=== PATIENT | male | born 1955 | race Caucasian/White ===

== ENCOUNTER → 2016-04-26 | Outpatient (CLI) | payer OTHER ==
[~2016-04-26] VITALS: Ht 188 cm; Wt 152.9 kg
[~2016-04-26] MED LIST: ALLERCLEAR10 MG PO; AMITRIPTYLINE H25 M2 PO; AMITRIPTYLINE H25 M3 PO; AMITRIPTYLINE H25 M4 GT; AMITRIPTYLINE H50 M3 PO; AMITRIPTYLINE H75 M1 PO; AMITRIPTYLINE PO; ARTIFICIAL TEAR15 M1 OPHTHALMIC; B-12; BONINE25 MG PO; BRETHINE2.5 MG PO; CELEBREX 200 M200 MG PO; CLONAZEPAM 0.50.5 M1 PO; CLONAZEPAM PO; COLACE100 MG PO; DIAZEPAM 2MG TAB2 MG PO; ELAVIL PO; FOLIC ACID1 MG PO; GLUMETZA500 PO; GLYCOLAX POWDER17 G1 PO; HYDROCODON-ACE1 EAC7 PO; LEVOXYL100 MCG PO; LIDODERM 5%1 PATCH TOP; LOVASTAT10; LOVASTAT20 PO; LYRICA 50 MG50 MG PO; LYRICA 75 MG CA75 MG PO; METOCLOPRAMIDE 55 MG PO; MONTELUKAST SOD10 MG PO; NEXIUM 40 MG CA40 M1 PO; NEXIUM40 MG PO; OSTEO BI-FLEX1 EAC1 PO; OXECTA5 MG PO; OXYCODONE HCL 55 MG PO; OXYCODONE HCL5 M1 PO; OXYCONTIN CR 1010 M1 PO; OXYCONTIN10 M1 PO; OXYCONTIN10 MG PO; OXYCONTIN20 M1 PO; OXYCONTIN20 MG PO; OXYCONTIN30 MG PO; OXYCONTIN40 MG PO; OXYIR5 MG PO; PREDNISOLONE 5 M5 M1 PO; PRILOSEC40 MG PO; PROAIR HFA8.5 GM INH; RANITIDINE 150150 M1 PO; REGLAN 5 MG TAB5 M1 PO; RESTORIL15 MG PO; ROXICODONE5 M2 PO; SINGULAIR 10 MG10 M1 PO; SINGULAIR5 MG PO; VITAMIN D-32000 UNIT PO; XOPENEX 0.63 MG/3 M1 INH; ZESTRIL10 MG PO; ZESTRIL20 MG PO; amitriptyline PO
--- NOTE | ~2016-04-26 | HPC ---
[facility] [place] [address] PAIN MANAGEMENT CONSULTATION Name: PATRICK WU Room #: REG [facility]#: [id number] Admission: 04/26/16 Attend Phys: Kathy Bryant MD Discharge: Date of : 53 Report #: [id number] THIS REPORT FOR: //name// CC: Juan Luis WRIGHT physician/PCP Kathy Bryant DATE OF SERVICE: 04/26/2016 DATE OF SERVICE: 04/26/2016 FOLLOWUP COMPLAINT: Here for medication renewal. FOLLOWUP HISTORY: The patient is a 60-year-old gentleman, who has been followed in the pain clinic because of chronic pain regarding his low back. He also has had chronic pain because of lljp-ls-klyl knee pain. He has had both knees repaired. He feels that his pain has improved since the surgeries have been performed. His problem at this juncture continues to be pain in his lower portion of his back with some pain that radiates down into his legs. He has increased his level of activity. He still walks with somewhat of an antalgic walk gait. He states that his orthopedic doctor had instructed him on how to walk more upright and with less bending of his back. PHYSICAL EXAMINATION: Blood pressure is 112/77, pulse 100, respiratory rate 20, room air O2 saturation is 96%. The patient's weight is 152 kilograms. BMI is 43. He complains of pain and discomfort in the lower portion of his back with pain radiating down into the buttocks area. He has not fallen in the last 3 months. IMPRESSION: 1. Status post bilateral knee replacements with continued improvement. The patient is working on his gait. 2. Myocardial infarct. The patient has had no cardiac problems since we saw him last. He continues to follow up with his rn gynecology. Treatment of low back and chronic pain with opioid medications. RECOMMENDATIONS: We discussed treatment options with the patient. Risks and benefits of continued opioids medications were reviewed. The possible dependency of opioid medications have been discussed again. The patient feels that his medications continued enabled him to engage in activities of daily living. He would not be able to without their use. We will renew the patient's OxyContin medication 20 mg in the morning and 10 mg at night. He will use oxycodone 5 mg p.r.n. He continues with clonazepam 0.5 mg every day. Elavil will be continued at 75 mg at bedtime. The patient will [address] [address] PAIN MANAGEMENT CONSULTATION Name: PATRICK WU Room #: REG [facility].#: [id number] Admission: 04/26/16 Attend Phys: Kathy Bryant MD Discharge: Date of : 53 Report #: [id number] also continue with his Xopenex inhaler, Singulair, Nexium, and albuterol. He will call us if he has any problems with his medications. We would like to thank you for letting us participate in his care. We hope he continues to improve. <ELECTRONICALLY SIGNED> By: Kathy Bryant MD 05/17/16 1018 [id number] [id number] Kathy Bryant MD /nt
[2016-04-26 09:14] VITALS: BP 112/77
== END | disposition home or self-care (01) ==
LOC: PAIN 04-22 07:09
DX: M54.5 Low back pain (principal); G89.29 Other chronic pain; Z96.653 Presence of artificial knee joint, bilateral; I25.2 Old myocardial infarction

== ENCOUNTER → 2016-07-27 | Outpatient (CLI) | payer OTHER ==
[~2016-07-27] VITALS: Ht 188 cm; Wt 151.8 kg
--- NOTE | ~2016-07-27 | HPC ---
[facility] [address] [place] [address] PAIN MANAGEMENT CONSULTATION Name: PATRICK WU Room #: REG [facility] [id number] Admission: 07/27/16 Attend Phys: Kathy Bryant MD Discharge: Date of : 53 Report #: [id number] THIS REPORT FOR: //name// CC: Juan Luis Torres DO [facility] physician/PCP Kathy Bryant DATE OF SERVICE: 07/27/2016 FOLLOWUP COMPLAINT: Things are going pretty well. FOLLOWUP HISTORY: The patient is a 61-year-old gentleman who has been followed in the pain clinic because of lumbar radiculopathy and history of bilateral knee wqqb-qi-znuo discomfort. He has had his left and right knee replaced. Overall, he feels that the knees are improving. He continues to have pain and discomfort in the lower portion of his back. He rates his pain as about 5. PHYSICAL EXAMINATION: Blood pressure 139/79, pulse 91, respiratory rate 18, room air saturation 96%. The patient is not walking with his cane at this juncture. He continues to improve his ambulation secondary to replacement of both knees. He continues to have pain and discomfort in his low back. He is wondering whether or not he needs surgery. He states that he is going to see a neurosurgeon in the near future. IMPRESSION: 1. Status post myocardial infarct, stable at this juncture per the patient's report. 2. Bilateral knee replacements, improved gait. 3. History of lumbar radicular pain. The patient states that he is having significant back pain and he is going to see a neurosurgeon in the near future. RECOMMENDATIONS: A script for his medications has been rewritten. He will call us if he has any problems with his medications. We would like to thank you for letting us participate in his care. We hope he continues to improve. By: [id number] Kathy Bryant MD /nt
[2016-07-27 12:43] VITALS: BP 150/91
== END ==
LOC: PAIN 06:58
DX: M54.16 Radiculopathy, lumbar region (principal); Z96.653 Presence of artificial knee joint, bilateral; I25.2 Old myocardial infarction; I10 Essential (primary) hypertension; F32.9 Major depressive disorder, single episode, unspecified

== ENCOUNTER → 2016-08-24 | Outpatient (CLI) | payer OTHER ==
[~2016-08-24] VITALS: Ht 182.9 cm; Wt 151.4 kg
[~2016-08-24] MED LIST changes: +TOPAMAX50 MG PO
--- NOTE | ~2016-08-24 | HPC ---
[facility] [address] [place] [address] PAIN MANAGEMENT CONSULTATION Name: PATRICK WU Room #: REG ROSELYN Julisa#: [id number] Admission: 08/24/16 Attend Phys: Kathy Bryant MD Discharge: Date of : 53 Report #: [id number] THIS REPORT FOR: //name// DATE OF SERVICE: 08/24/2016 FOLLOWUP COMPLAINT: "My knees are continue to feel pretty good." FOLLOWUP HISTORY: The patient is a 61-year-old gentleman who has been followed in the pain clinic because of chronic pain involving the lumbar area at this juncture. He did have pain in his knees bilaterally. He has had both knees replaced and feels that things are continuing to improve overall. He has not had any problems with his medications since we saw him last. Overall, he feels that his level of activity continues to increase. He is able to engage in more physical activities. He is having some pain and discomfort in his lower back with some pain, which radiates down into his legs. He is having some pain in his left shoulder. He notes some throbbing and stiffness. Rates his back pain as a 5/10 and some pain in the neck area as a 6/10. Notes that the pain is more problematic when he is looking down. PHYSICAL EXAMINATION: Weight 151 kilograms, height 182 cm, BMI 45. The patient has not fallen since we saw him last. He appears to be taking the medication as prescribed. Is not complaining of any cardiac problems since we saw him last. IMPRESSION: 1. History of lumbar radicular pain with pain radiating down into his legs. The patient states that he will see a neurosurgeon if the pain persists. 2. Status post myocardial infarct, stable at this juncture. 3. Bilateral knee replacements, notes improving gait and activity level. RECOMMENDATIONS: We will continue with his Elavil 75 mg at bedtime, clonazepam 0.5 mg at bedtime, oxycodone 5 mg 1 p.o. t.i.d., OxyContin total of 30 mg p.o. at bedtime. We would like to thank you for letting us participate in his care. We hope he continues to improve. By: [id number] Kathy Bryant MD /caryl
[2016-08-24 08:03] VITALS: BP 127/95
== END | disposition home or self-care (01) ==
LOC: PAIN 06:45
DX: M54.16 Radiculopathy, lumbar region (principal); M25.561 Pain in right knee; M25.562 Pain in left knee; I25.2 Old myocardial infarction; G89.29 Other chronic pain; F11.20 Opioid dependence, uncomplicated; Z96.653 Presence of artificial knee joint, bilateral

== ENCOUNTER → 2016-09-21 | Outpatient (CLI) | payer OTHER ==
[~2016-09-21] VITALS: Ht 188 cm; Wt 152.9 kg
--- NOTE | ~2016-09-21 | HPC ---
[facility] [place] [address] PAIN MANAGEMENT CONSULTATION Name: PATRICK WU Room #: REG [facility] Hernandez.#: [id number] Admission: 09/21/16 Attend Phys: Kathy Bryant MD Discharge: Date of : 53 Report #: [id number] THIS REPORT FOR: //name// CC: Juan Luis WRIGHT physician/PCP Kathy Bryant DATE OF SERVICE: 09/21/2016 FOLLOWUP COMPLAINT: "Here for medication renewal." FOLLOWUP HISTORY: The patient is a 61-year-old gentleman who has been followed in the pain clinic because of chronic bilateral knee pain. He is status post knee replacements and has noticed improvement in this. He is experiencing pain and discomfort in his low back area as well as some pain and discomfort in his left shoulder. He has been working on his house and working overhead on the ease of his house. He has noted some increased pain and discomfort in this area. He rates his pain as 6 in his neck and 3 in the lower back area. He continues to have some throbbing, stiffness and cramping discomfort in the low back area. He feels that his medications enable him to engage in activities he would not be able to without their use. He again is aware of possible complication of opioid medications, which include addiction and tolerance. He feels that the medications are helpful and would like to continue their use. He keeps his medications in a controlled environment. PHYSICAL EXAMINATION: Blood pressure 162/94, pulse 83, respiratory rate 14, room air saturation 96%. Height 6 feet 2 inches, weight 152 kilograms. BMI is 43. He has not fallen since we saw him last. He is ambulating now without use of his cane. IMPRESSION: 1. History of low back pain with lumbar radicular pain down into his legs. 2. Status post myocardial infarct/stable. 3. Status post bilateral knee replacements, has continued to improve with activity. 4. Pain in the neck and shoulder area after working overhead on his house. May have cervical radicular component. RECOMMENDATIONS: May consider cervical epidural steroid injections. A script for his medications has been written. He will call us if he has any problems with his medications. [facility] [address] [place] [address] PAIN MANAGEMENT CONSULTATION Name: PATRICK WU Room #: REG [facility]#: [id number] Admission: 09/21/16 Attend Phys: Kathy Bryant MD Discharge: Date of : 53 Report #: [id number] We would like to thank you for letting us participate in his care. We hope he continues to improve. <ELECTRONICALLY SIGNED> By: Kathy Bryant MD 09/22/16 0820 [address]250 [id number] Boaz Bryant MD /nt
[2016-09-21 08:09] VITALS: BP 162/94
== END | disposition home or self-care (01) ==
LOC: PAIN 06:36
DX: M54.16 Radiculopathy, lumbar region (principal); M79.1 Myalgia; Z98.890 Other specified postprocedural states

== ENCOUNTER → 2016-10-19 | Outpatient (CLI) | payer OTHER ==
[~2016-10-19] VITALS: Ht 188 cm; Wt 106.8 kg
[2016-10-19 08:05] VITALS: BP 127/61
== END ==
LOC: PAIN 07:12
DX: M54.5 Low back pain (principal)

== ENCOUNTER → 2016-11-23 | Outpatient (CLI) | payer OTHER ==
[~2016-11-23] VITALS: Ht 188 cm; Wt 146.5 kg
--- NOTE | ~2016-11-23 | HPC ---
[facility] [place] [address] PAIN MANAGEMENT CONSULTATION Name: PATRICK WU Room #: REG [facility] [id number] Admission: 11/23/16 Attend Phys: Kathy Bryant MD Discharge: Date of : 53 Report #: [id number] THIS REPORT FOR: //name// CC: Juan Luis WRIGHT physician/PCP Kathy Bryant DATE OF SERVICE: 11/23/2016 FOLLOWUP COMPLAINT: Low back and shoulder pain. HISTORY OF PRESENT ILLNESS: The patient is a 61-year-old gentleman who has been followed in the pain clinic because of lumbar radiculopathy. He has undergone epidural steroid injections in the past. He also suffered from knee pain. He is status post bilateral knee replacements and has noticed improvement in this area. He rates his pain as 5/10. He continues to have pain in the lower portion of his back, which radiates down into his legs. He has some left shoulder pain and discomfort. He notes that the pain is worse when he is looking up. The patient feels that his opioid medications continue to be helpful. He is taking them as prescribed. We have discussed the possibility of time tolerance as well as dependence associated with opioid medications. At this juncture, he would like to continue with his current medications. PHYSICAL EXAMINATION: Blood pressure is 121/84, pulse 79, respiratory rate 14 and room air saturation is 98%. Height 6 feet 2 inches, weight 323 pounds, BMI is 41. He has not fallen since we saw him last. IMPRESSION: 1. History of low back pain with lumbar radiculopathy down into his legs. 2. Status post myocardial infarct, stable. 3. Status post bilateral knee replacements, continues to improve with activity. 4. Pain in the neck, shoulder area while working ____ house, stable, may have cervical radicular component. RECOMMENDATIONS: We will continue with his current medical regimen of OxyContin 10 mg at bedtime, 20 mg a.m. for a total of 30 mg OxyContin and OxyContin immediate release 5 mg 1 p.o. t.i.d. We would like to thank you for letting us participate in his care. We hope he continues to improve. By: [id number] Kathy Bryant MD /caryl
[2016-11-23 08:09] VITALS: BP 121/84
== END ==
LOC: PAIN 06:58
DX: M54.16 Radiculopathy, lumbar region (principal); M54.2 Cervicalgia; M25.519 Pain in unspecified shoulder

== ENCOUNTER → 2016-12-28 | Outpatient (CLI) | payer OTHER ==
[~2016-12-28] VITALS: Ht 188 cm; Wt 145.2 kg
[~2016-12-28] MED LIST changes: +VITAMIN B-1250 MC3 INJECTION; +VITAMIN D5000 UNI1 PO
--- NOTE | ~2016-12-28 | HPC ---
[facility] [address] [place] [address] PAIN MANAGEMENT CONSULTATION Name: PATRICK WU Room #: REG [facility] Hernandez.#: [id number] Admission: 12/28/16 Attend Phys: Kathy Bryant MD Discharge: Date of : 53 Report #: [id number] THIS REPORT FOR: //name// CC: Juan Luis WRIGHT physician/PCP Kathy Bryant DATE OF SERVICE: 12/28/2016 FOLLOWUP COMPLAINT: "I have pain in my low back in the center. I am also having more pain in my left shoulder with pain down into my arm with numbness and tingling and weakness. It is worse when I lie on it at night." FOLLOWUP HISTORY: The patient is a 61-year-old gentleman who has been followed in the pain clinic for quite a number of years. As you recall, he has had problems with his knees. He has had both knees replaced and feels like things are improving from that vantage point. He is having pain and discomfort involving his left arm with pain radiating down into the arm with numbness, weakness and tenderness down into the left arm. 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 The pain waxes and wanes. It is most problematic with certain positions. If he turns his head to the left and bends it, he notes pain radiating down into his arm. He is having pain and discomfort in the back area at this juncture. It is focal. Palpation in the lower portion of his right upper buttocks area reproduces pain and discomfort. He notes that this pain has become more problematic and it influences his activities of daily living. He states that his cardiac status is good. He is not having any pain or discomfort with activities. He still feels that the problem he had with his heart was possibly secondary to ____ little clot when he underwent his knee replacement and did not take the Coumadin medication for a long enough period of time. PHYSICAL EXAMINATION: Blood pressure 132/80, pulse 87, respiratory rate 16, room air saturation 98%. Height 6 feet 2 inches, weight 320 pounds, BMI is 41, has not fallen since we saw him last. He is having pain and discomfort in the left arm with pain radiating down into the shoulder, forearm and down into his fingers. Tilting his head to the left and bending it backwards causes pain that can radiate down into his shoulder, arm and into his hand. He has pain and discomfort in the area of the right posterior superior iliac spine area. Palpation in this area reproduces pain and discomfort, which is causing him problems at this juncture. He would like to have an injection into this area to help decrease the pain. IMPRESSION: 1. Myofascial pain in the right posterior superior iliac spine area. 2. History of lumbar radiculopathy, which radiates down into his legs. 3. History of pain in the left neck and arm, which has been going over the last few months. Worsens with certain positioning with numbness, weakness, radiating [address] [address] PAIN MANAGEMENT CONSULTATION Name: PATRICK WU Room #: REG CLJolene Egan#: [id number] Admission: 12/28/16 Attend Phys: Kathy Bryant MD Discharge: Date of : 53 Report #: [id number] down into his arm -- cervical radiculopathy. 4. Status post bilateral knee replacements, continues to improve. RECOMMENDATIONS: We discussed treatment options with the patient. He has a trigger point in the right posterior superior iliac spine area. We will proceed with a trigger point injection at this juncture. He will return. At the next return, we will consider a cervical epidural steroid injection if he continues to have pain and discomfort of a radicular nature down his left shoulder, arm, forearm and into his hand with weakness. PROCEDURE NOTE: The patient was placed in the sitting position. The right posterior superior iliac spine area was palpated. The area of the latissimus dorsi and gluteus selena was palpated. This reproduced the patient's discomfort. A total of 10 mL of 0.5% bupivacaine and 80 mg Depo-Medrol was injected into this area. The patient's pain decreased significantly and rates it as 3. He will follow up in the near future. We will consider a cervical epidural steroid injection in the future if needed. We would like to thank you for letting us participate in his care. We hope he continues to improve. By: [id number] Kathy Bryant MD /ODALYS
[2016-12-28 08:51] VITALS: BP 132/80
== END | disposition home or self-care (01) ==
LOC: PAIN 12-21 07:06 → EDBD 07:07 → PAIN 10:57
DX: M79.1 Myalgia (principal); G89.29 Other chronic pain; M54.16 Radiculopathy, lumbar region; I25.2 Old myocardial infarction; M54.12 Radiculopathy, cervical region; E66.09 Other obesity due to excess calories; Z96.653 Presence of artificial knee joint, bilateral; Z98.890 Other specified postprocedural states; Z79.891 Long term (current) use of opiate analgesic; Z68.41 Body mass index [BMI] 40.0-44.9, adult

== ENCOUNTER → 2017-03-29 | Outpatient (CLI) | payer OTHER ==
[~2017-03-29] VITALS: Ht 188 cm; Wt 139.5 kg
[~2017-03-29] MED LIST changes: +AMITRIPTYLINE100 MG PO; +CELEBREX 200 M200 M1 PO; +MEDROLDOSEPACK PO; +MOBIC15 MG PO; +NEURONTIN 300300 M1 PO; -VITAMIN B-1250 MC3 INJECTION; +VITAMIN B-12500 MCG PO
--- NOTE | ~2017-03-29 | HPC ---
[facility] [address] [place] [address] PAIN MANAGEMENT CONSULTATION Name: PATRICK WU Room #: REG [facility]#: [id number] Admission: 03/29/17 Attend Phys: Kathy Bryant MD Discharge: Date of : 53 Report #: [id number] THIS REPORT FOR: //name// CC: Juan Luis WRIGHT physician/PCP Kathy Bryant DATE OF SERVICE: 03/29/2017 FOLLOWUP COMPLAINT: Here for medications. Things are going pretty good and having less pain since I started the Meloxicam. FOLLOWUP HISTORY: The patient is a 61-year-old gentleman, who has been followed in the pain clinic. As you recall, he has chronic knee pain. This knee pain has improved since he has had bilateral knee replacements. Continues to have history of back pain with lumbar radicular symptoms. States that this waxes and wanes and continues to be problematic. He was having significant pain in his neck, arms, and down in his forearms bilaterally. He took Mobic and noted there is improvement in this. He feels that this medication has been quite successful in helping to decrease his pain and discomfort. It enables him to increase his level of activity with less discomfort. PHYSICAL EXAMINATION: Blood pressure 143/100, pulse 106, respiratory rate 20, room air saturation 96%, height 6 feet 2 inches, weight 307 pounds, BMI is 39. Has pain and discomfort, which he describes as discomfort, radiating down his neck and shoulders as well as pain in the low back, which radiates down to his legs and increases with walking. He rates his pain as a 6/10. IMPRESSION: 1. History of myofascial pain in the posterior iliac spine area. 2. History of lumbar radicular pain. States his pain continues to radiate down into his legs with certain activities. He does not want an epidural steroid injection at this juncture. 3. Cervical radiculopathy, which improved with use of Mobic, but still had been encompasses his shoulders and forearms. 4. Status post bilateral knee replacements with continued improvement. RECOMMENDATIONS: We will continue with his current medical regimen of OxyContin 20 mg 1 p.o. and oxycodone 5 mg t.i.d. p.r.n. with Meloxicam. We have discussed the use of opioid medications. We have discussed the long-term benefits of opioid medications and the consequences, which include dependence, tolerance, [address] [address] PAIN MANAGEMENT CONSULTATION Name: PATRICK WU Room #: REG CLJolene Julisa#: [id number] Admission: 03/29/17 Attend Phys: Kathy Bryant MD Discharge: Date of : 53 Report #: [id number] and the patient elects to proceed. We will continue his complex medical management to help curb his pain and keep him functional. <ELECTRONICALLY SIGNED> By: Kathy Bryant MD 04/07/17 0806 0808 1230 Kathy Bryant MD /ODALYS
[2017-03-29 08:11] VITALS: BP 143/100
== END ==
LOC: PAIN 06:49
DX: G89.29 Other chronic pain (principal); M54.16 Radiculopathy, lumbar region; M54.12 Radiculopathy, cervical region; Z96.653 Presence of artificial knee joint, bilateral

== ENCOUNTER → 2017-04-26 | Outpatient (CLI) | payer OTHER ==
[~2017-04-26] VITALS: Ht 188 cm; Wt 140.7 kg
--- NOTE | ~2017-04-26 | HPC ---
[facility] [place] [address] PAIN MANAGEMENT CONSULTATION Name: PATRICK WU Room #: REG RO[facility]N Ng.#: [id number] Admission: 04/26/17 Attend Phys: Kathy Bryant MD Discharge: Date of : 53 Report #: [id number] THIS REPORT FOR: //name// CC: Juan Luis Torres [facility] physician/PCP Kathy Bryant DATE OF SERVICE: 04/26/2017 FOLLOWUP COMPLAINT: "I need to see the eye doctor. I got some paint sprayed in my eyes when I was working on a project." FOLLOWUP HISTORY: The patient is a 61-year-old gentleman who has been followed in the pain clinic because of chronic pain. He continues to have pain in his low back area with lumbar radicular concerns. He also has bilateral shoulder pain and discomfort. He has noted some irritation in his left and right eye. He was working on a project at [employer] for his grandchildren. He was spraying paint. He inadvertently sprayed some paint into his eye. He is noticing some irritation in the left eye. "It feels as though there is something in the left side." He is getting over a cold. He feels that his medications continue to be helpful. He is able to engage in activities, he would not be able to without their use. He states that he continues to use medications as prescribed. He is keeping them in a controlled environment. He is aware of the media regarding opioid use and opioid misuse. He is somewhat concerned that in the future if a reduced/stopped opioid use as an option. This will be more problematic for him. ALLERGIES: No known drug allergies. MEDICATIONS: OxyContin 20 mg b.i.d., OxyContin 10 mg b.i.d., oxycodone 5 mg 1 p.o. t.i.d., meloxicam 15 mg daily, amitriptyline 75 mg, vitamin D3, vitamin B12, Xopenex 0.63 mg respiratory inhalation t.i.d., Singulair 10 mg, Nexium 40 mg. PHYSICAL EXAMINATION: VITAL SIGNS: Blood pressure 133/82, pulse 74, respiratory rate 20, room air saturation 96%. Height 6 feet 2 inches, weight 310 pounds. GENERAL: Well-developed white male, obese. Orientation: Alert and oriented. Affect is appropriate. LUNGS: Clear to auscultation. HEART: Regular rate. ABDOMEN: Nontender. MUSCULOSKELETAL: The patient has some pain and discomfort in the posterior iliac spine area. Has had some pain in the lumbar area at L4-L5, well healed knees. The patient is ambulating without use of a cane. EYES: No obvious object seen in his eye or significant amount of redness. The patient does perceive some element in his left eye, [place] [address] PAIN MANAGEMENT CONSULTATION Name: PATRICK WU Room #: REG [facility]#: [id number] Admission: 04/26/17 Attend Phys: Kathy Bryant MD Discharge: Date of : 53 Report #: [id number] particle in this area. IMPRESSION: 1. History of myofascial pain, pain in the posterior superior iliac spine area. 2. History of lumbar radicular pain with pain radiating down his legs with certain activities. May consider an epidural steroid injection in the future. 3. Left eye discomfort. The patient states that he accidentally sprayed paint in his eye when he was painting a barn play house for his grandchildren at [facility]. He is going to follow up with the eye doctor. 4. Cervical radiculopathy, improved with use of Mobic. The patient is not having significant problems with GI discomfort. He will continue to monitor his GI tract. Use of nonsteroidal anti-inflammatory medications. 5. Status post bilateral knee replacements, continues to show improvement, was walking without a cane. RECOMMENDATIONS: We will continue with his current medical regimen of OxyContin 10 mg and 20 mg, a total of 30 mg; and oxycodone 5 mg 1 p.o. t.i.d. He will call us if he has any problems with his medications. We would like to thank you for letting us participate in his care. We hope he continues to improve. <ELECTRONICALLY SIGNED> By: Kathy Bryant MD 05/12/17 1332 0810 1439 Kathy Bryant MD /[facility]
[2017-04-26 09:23] VITALS: BP 133/82
== END ==
LOC: PAIN 06:16
DX: M54.16 Radiculopathy, lumbar region (principal); M54.12 Radiculopathy, cervical region; Z96.653 Presence of artificial knee joint, bilateral

== ENCOUNTER → 2017-05-24 | Outpatient (CLI) | payer OTHER ==
[~2017-05-24] VITALS: Ht 188 cm; Wt 138.3 kg
--- NOTE | ~2017-05-24 | HPC ---
[facility] [place] [address] PAIN MANAGEMENT CONSULTATION Name: PATRICK WU Room #: [facility] [id number] Admission: 05/24/17 Attend Phys: Kathy Bryant MD Discharge: Date of : 53 Report #: [id number] THIS REPORT FOR: //name// CC: Juan Luis WRIGHT physician/PCP Kathy Bryant DATE OF SERVICE: 05/24/2017 FOLLOWUP COMPLAINT: Here for medication renewal. FOLLOWUP HISTORY: The patient is a 61-year-old gentleman, who has been followed in the pain clinic because of chronic back pain. He also has chronic knee pain, which has improved since his knee replacement. He finds that his medications continue to be helpful. He finds that oxycodone continues to be instrumental in enabling him to continue to be active. He states that he is taking his medication as prescribed. He is having no problems with mentation. He is having no problems with GI complaints. He states that he is taking medications as prescribed. He keeps his medications in a guarded area at home. He would like to have his medications renewed at this juncture. ALLERGIES: No known drug allergies. MEDICATIONS: Current medications, which have been reviewed, OxyContin 20 mg b.i.d., OxyContin 10 mg b.i.d., oxycodone 1 p.o. t.i.d., Meloxicam 15 mg daily, amitriptyline 75 mg daily, vitamin D3, vitamin B12, Xopenex 0.63 mg as a respiratory inhaler t.i.d., Singulair 10 mg, Nexium 40 mg. PAIN CLINIC ASSESSMENT: 1. Positive history of osteoarthritis involving his knees, which have been replaced. 2. Height 6 feet 2 inches, weight 305 pounds, BMI is 39.1. 3. Vital Signs: Blood pressure 156/97, pulse is 106, respiratory rate 20, room air O2 saturation is 96%. 4. Pain intensity is rated as 4-5. 5. Fall risk. The patient has not fallen in the last 3 months. He is careful and feels that his strength continues to improve. His knees have healed up well. 6. The patient is not on any blood thinner. 7. Hypertension. The patient is not being treated for hypertension. 8. Opioid therapy greater than 6 weeks. The patient is on chronic opioid therapy and get his medications only from the pain clinic. 9. Risk assessment tool. 10. Functional assessment tool. 11. Recommend recreational drug use. The patient denies use [place] [address] PAIN MANAGEMENT CONSULTATION Name: PATRICK WU Room #: REG [facility]#: [id number] Admission: 05/24/17 Attend Phys: Kathy Bryant MD Discharge: Date of : 53 Report #: [id number] 12. Tobacco: The patient does not smoke. 13. Alcohol use. The patient does not use alcohol on a regular basis. PHYSICAL EXAMINATION: GENERAL: The patient is a well-developed, somewhat obese male, appears appropriate for age. Orientation: The patient is alert and oriented x 3. Affect: The patient's affect appears normal. Normal push of speech. HEENT: Normocephalic, atraumatic. Extraocular eye muscles are intact. Ears, normal hearing. Denies nasal congestion or complaints. Moist buccal membrane. NECK: Without adenopathy or JVD. LUNGS: Clear to auscultation. HEART: Regular rate. ABDOMEN: Protuberant, nontender. MUSCULOSKELETAL: The patient has normal alignment of the back without significant scoliosis, significant kyphosis or lordosis. Has well healed knees. Able to walk without significant antalgic gait. Muscle strength in the lower extremities judged to be 5/5. Ambulating without a cane at this juncture. IMPRESSION: 1. Myofascial pain in the posterior superior iliac spine areas. 2. History of lumbar radiculopathy and pain radiating down into his leg in certain activities. May consider epidural steroid injection in the future. 3. Left eye discomfort has improved. 4. Cervical radiculopathy, improved with use of Mobic and has not had any GI complaints. 5. Status post bilateral knee replacements. Continue to ambulate without a cane. RECOMMENDATIONS: We discussed treatment options with the patient. At this juncture, we will continue with his current medical regimen. We have discussed again the problems with opioid medications which are addiction as well as tolerance. The patient is aware of the implications of opioids use. He has seen it in the news. We have discussed the need to stay compliant with the CDCs, suggested morphine equivalents. We will continue to make advances in that direction. We would like to thank you for letting us participate in his care. We hope he continues to improve. <ELECTRONICALLY SIGNED> By: Kathy Bryant MD 06/21/17 1429 [id number] Kathy Bryant MD /ODALYS
[2017-05-24 08:16] VITALS: BP 156/97
== END ==
LOC: PAIN 06:39
DX: M53.3 Sacrococcygeal disorders, not elsewhere classified (principal); M54.12 Radiculopathy, cervical region; Z96.653 Presence of artificial knee joint, bilateral; M54.16 Radiculopathy, lumbar region

== ENCOUNTER → 2017-06-23 | Outpatient (CLI) | payer OTHER ==
[~2017-06-23] VITALS: Ht 188 cm; Wt 140.2 kg
[~2017-06-23] MED LIST changes: -AMITRIPTYLINE100 MG PO; -CELEBREX 200 M200 M1 PO; -NEURONTIN 300300 M1 PO; +VITAMIN B-1250 MC3 INJECTION; -VITAMIN B-12500 MCG PO
--- NOTE | ~2017-06-23 | HPC ---
[facility] [address] [place] [address] PAIN MANAGEMENT CONSULTATION Name: PATRICK WU Room #: REG [facility] MSheylaRoxi.#: [id number] Admission: 06/23/17 Attend Phys: Kathy Bryant MD Discharge: Date of : 53 Report #: [id number] THIS REPORT FOR: //name// CC: Juan Luis Torres DO FAM physician/PCP Kathy Bryant DATE OF SERVICE: 06/23/2017 PRIMARY CARE PHYSICIAN: Juan Luis Torres DO FOLLOWUP COMPLAINT: Here for medication renewal. FOLLOWUP HISTORY: The patient is a 62-year-old gentleman who has been followed in the pain clinic because of chronic pain involving his low back. He has also had chronic knee pain and has undergone bilateral knee replacements. Still has some pain in his back with some pain that radiates down into his legs. He has had some problems with his cervical area as well. He was given a script for Mobic. He noticed that it was quite beneficial with the upper extremity pain and discomfort. After prolonged use of this medication, he has noted some increased problems with his stomach. Feels that this medication has caused some GI irritation and has cut back on its use. Rates his pain as a 6-7 at this juncture. Notes some throbbing pain and constant discomfort when walking. Notes that there is pain and discomfort when he looks up because of the problem in his neck. Notes some pain when he is lying down on his arm. Notes that he has had some worsening of pain when he is engaged in some activities of daily living such as laying tiles or other activities. At this juncture, he would like to continue his medications. He feels that the medications are helpful. There are no problems with his mentation. These medications enable him to continue to engage in activities of daily living, he would not be able to without their use. He has been watching some media in regards to opioid use in our society. He feels overall that his medications are working reasonably well. They enable him to remain active. He keeps his medications in a guarded area. Denies any problems with mentation. ALLERGIES: No known drug allergies. MEDICATIONS: OxyContin 10 mg b.i.d., oxycodone 1 p.o. t.i.d., Meloxicam 15 mg daily, amitriptyline 75 mg daily, vitamin D3, vitamin B12, Xopenex 0.6 mg respiratory inhaler t.i.d., Singulair 10 mg, Nexium 40 mg. PAIN CLINIC ASSESSMENT: 1. The patient does have a history of osteoarthritis involving his knees, which have been replaced. Does have some back pain and discomfort as well. 2. Height 6 feet 2 inches, weight 309 pounds, BMI is 39. 3. Vital signs: Blood pressure 136/85, pulse 85, respiratory rate 16, [place] [address] PAIN MANAGEMENT CONSULTATION Name: PATRICK WU Room #: REG [facility].#: [id number] Admission: 06/23/17 Attend Phys: Kathy Bryant MD Discharge: Date of : 53 Report #: [id number] saturation 95%. 4. Pain intensity 09/17. 5. Fall risk. The patient has not fallen in the last 3 months. He does use a cane for ambulation. 6. Blood thinner. The patient is not on a blood-thinning agent 7. History of hypertension. The patient is being treated for hypertension. 8. Opioid therapy. Used greater than 6 weeks, the patient is on opioid therapy. 9. Risk assessment with opioid risk tool. 10. Functional assessment tool. 11. Recreational drug use, never. 12. Tobacco use, never. 13. Alcohol. The patient denies use of alcoholic beverages. PHYSICAL EXAMINATION: GENERAL: The patient is a well-developed white male, appears his stated age. ORIENTATION: The patient is alert and oriented x 3. AFFECT: The patient's affect is appropriate. SPEECH: Speech is normal. HEENT: Normocephalic, atraumatic. Extraocular eye muscles intact. Hearing is within normal limits. Sclerae are normal. Mucous membranes are moist. NECK: Has some limitations with certain movements of extension, flexion left and right lateral bending. Left and right lateral movement causes some increased pain and discomfort in his arm and down into his hands. HEART: Regular rate. ABDOMEN: Protuberant. CHEST: Clear to auscultation. LOWER EXTREMITIES: Muscle strength is judged to be 5/5 for the major muscle groups. The patient does walk with use of a cane. Does complain of some low back pain and discomfort with low lumbar radicular pain down into his back and his legs on occasion. This involves the L4-L5 distribution. MUSCULOSKELETAL: Without significant kyphosis, scoliosis or lordosis. IMPRESSION: 1. History of bilateral knee pain, status post knee replacements. 2. History of lumbar radicular pain, which is episodic in nature. 3. Cervical radicular pain with pain radiating down into the arms. The patient has stopped using Mobic, which was quite helpful secondary due to some gastrointestinal discomfort, may consider cervical epidural steroid injections in the future. 4. Myofascial pain, sometimes pain in the area of the posterior superior iliac spines. We may consider trigger point injections in the future. RECOMMENDATIONS: We discussed treatment options with the patient. We will continue with his current medical regimen of OxyContin and oxycodone. We have discussed the need to be within the range of the [facility] which is less than [address] [facility] [address] [place] [address] PAIN MANAGEMENT CONSULTATION Name: PATRICK WU Room #: REG [facility].#: [id number] Admission: 06/23/17 Attend Phys: Kathy Bryant MD Discharge: Date of : 53 Report #: [id number] morphine equivalents. We will rewrite the patient's OxyContin 20 mg 1 p.o. morning and evening. We will also write for the OxyIR medications. The patient will stop taking the Mobic at this juncture secondary to the irritation of his GI tract. If he takes his medication, he will be mindful of his stomach. We would like to thank you for letting us participate in his care. We hope he continues to improve. <ELECTRONICALLY SIGNED> By: Kathy Bryant MD 07/19/17 0851 1730 0515 Kathy Bryant MD /[facility]
[2017-06-23 10:39] VITALS: BP 136/85
== END ==
LOC: PAIN 06-21 14:03
DX: G89.29 Other chronic pain (principal); M54.5 Low back pain; M79.1 Myalgia

== ENCOUNTER → 2017-10-04 | Outpatient (CLI) | payer OTHER ==
[~2017-10-04] VITALS: Ht 188 cm; Wt 145.1 kg
[~2017-10-04] MED LIST changes: +CELEBREX 200 M200 M1 PO
--- NOTE | ~2017-10-04 | HPC ---
[facility] [address] [place] [address] PAIN MANAGEMENT CONSULTATION Name: PATRICK WU Room #: REG ROSELYN GoodsonSheylaRoxi.#: [id number] Admission: 10/04/17 Attend Phys: Kathy Bryant MD Discharge: Date of : 53 Report #: [id number] THIS REPORT FOR: //name// CC: Juan Luis WRIGHT physician/PCP Kathy Bryant DATE OF SERVICE: 10/04/2017 FOLLOWUP COMPLAINT: Here for medication renewal. FOLLOWUP HISTORY: The patient is a 62-year-old gentleman who has been followed in the Pain Clinic because of chronic back pain. He also has pain involving his knees. They have been replaced. Has some pain today involving his neck and pain radiating down to his arm. He has used Mobic. He finds that medication has caused some GI upset. He continues to find benefit from his medications. He finds that the OxyContin and oxycodone are still beneficial. He feels that his medications enable him to remain active. He is somewhat tired today. He states that his daughter has been hospitalized and has been found to have [place]'s disease. He has been spending more time with her. He has returned today for renewal of this medication. Keeps his medications in a guarded area. ALLERGIES: No known drug allergies. MEDICATIONS: OxyContin 10 mg p.o. b.i.d., 20 mg OxyContin b.i.d. for a total of 30 mg oxycodone b.i.d., oxycodone 5 one p.o. t.i.d., meloxicam 15 mg daily, amitriptyline 75 mg daily, multivitamin, vitamin D, vitamin B12, Xopenex 0.0.6 mg, respiratory inhaler t.i.d., Singulair 10 mg, and Nexium 40 mg. PAIN CLINIC ASSESSMENT: 1. The patient has a history of osteoarthritis involving his knees. He has some pain and discomfort in his neck with pain down into his arm. 2. Height 6 feet 2 inches, weight 319 pounds, BMI is 41. 3. VITAL SIGNS: Blood pressure 127/74, pulse 86, respiratory rate 20, room air O2 saturation is 96%. 4. Pain intensity 10. 5. Fall risk. The patient has not fallen in the last 3 months. 6. Blood thinner. The patient is not on a blood thinning medication. 7. Hypertension. The patient is being treated for hypertension. 8. Opioid therapy greater than 6 weeks. The patient gets his medication from one source here at the Pain Clinic. 9. Risk assessment tool, low risk for opioid use. 10. Recreational drug use. The patient denies use of recreational drugs. 11. Tobacco: The [place] [address] PAIN MANAGEMENT CONSULTATION Name: PATRICK WU Room #: REG Jolene Egan#: [id number] Admission: 10/04/17 Attend Phys: Kathy Bryant MD Discharge: Date of : 53 Report #: [id number] 12. Alcohol. The patient denies use of alcoholic beverages. PHYSICAL EXAMINATION: GENERAL: The patient is a well-developed, obese white male. He appears his stated age. He is alert and oriented x 3. Speech is fluent. HEENT: Normocephalic, atraumatic. Extraocular eye muscles intact. Hearing within normal limits. Sclerae nonicteric. Mucous membranes are moist. NECK: Without adenopathy or JVD. Notes some pain and discomfort with flexion and extension of his neck as well as right and left lateral bending. HEART: Regular rate. ABDOMEN: Nontender right lower quadrant/flank pain. CHEST: Clear to auscultation. EXTREMITIES: Upper extremities muscle strength is judged to be 5/5 for the major muscle groups in the upper extremity. MUSCULOSKELETAL: Without significant scoliosis, kyphosis or lordosis. The patient has some pain radiating down into his legs in the L4-L5 distribution. Has some knee pain, but it continues to improve over time. IMPRESSION: 1. History of bilateral knee pain status post bilateral knee replacements. 2. History of lumbar radicular pain, which is episodic in nature. 3. Cervical radicular pain with pain radiating down into his arms. The patient has used Mobic. Has found that this medication caused some esophageal complaints. 4. Myofascial pain. The patient has pain in the posterior iliac areas. 5. Pain in the right costovertebral angle. RECOMMENDATIONS: We discussed treatment options with the patient. At this juncture, we will continue with his current medications. He feels that he may have a urinary tract infection. He has had one in the past. He is experiencing pain in the right flank area. Also, he has some generalized pain in his back and in his knees. We will have the patient follow up with his primary doctor in regards to the flank pain. He states it has been going on for about 3 weeks. We will continue with his OxyContin, a total of 60 mg b.i.d. and oxycodone 5 mg 1 p.o. t.i.d. Script for these medications have been written. A script for amitriptyline was renewed. The patient will call us if he has any problems with his medications. We would like to thank you for letting us participate in his care. We hope he continues to improve. By: [id number] Kathy Bryant MD /nt
[2017-10-04 08:58] VITALS: BP 127/74
== END ==
LOC: PAIN 06:57
DX: M54.2 Cervicalgia (principal); M79.1 Myalgia; G89.29 Other chronic pain; Z79.899 Other long term (current) drug therapy

== ENCOUNTER → 2017-10-27 | Outpatient (CLI) | payer OTHER ==
[~2017-10-27] VITALS: Ht 185.4 cm; Wt 147.4 kg
--- NOTE | ~2017-10-27 | HPC ---
[facility] [address] [place] [address] PAIN MANAGEMENT CONSULTATION Name: PATRICK WU Room #: REG ROSELYN Hernandez.#: [id number] Admission: 10/27/17 Attend Phys: Kathy Bryant MD Discharge: Date of : 53 Report #: [id number] THIS REPORT FOR: //name// CC: Juan Luis WRIGHT physician/PCP Kathy Bryant DATE OF SERVICE: 10/27/2017 FOLLOWUP COMPLAINT: Here for medication renewal. I am having a lot of pain in my right side, similar to when I had kidney stones. FOLLOWUP HISTORY: The patient is a 62-year-old gentleman who has been followed in the pain clinic because of chronic pain involving his back. Also, has some pain and discomfort in his knees. He has had those knees replaced. Overall, things are going reasonably well there. He does have cervical radicular pain. He has used nonsteroidal anti-inflammatory medications. On that medication it has caused some GI upset. At this juncture, he is having pain and discomfort involving his right flank area. He states that use of his medications continue to be helpful, but feels that there might be some problems in his right side consistent with kidney stones. He has had them before and feels like he is having pain, which is similar to that at this juncture. He would like to have his medications renewed. He also would like to have evaluation of the right flank area. ALLERGIES: No known drug allergies. CURRENT MEDICATIONS: OxyContin 10 mg 1 p.o. b.i.d. and OxyContin 20 mg b.i.d. for a total dose of 30 mg p.o. b.i.d., oxycodone 5 one p.o. t.i.d., Meloxicam 15 mg, amitriptyline 75 mg, multivitamin, vitamin D, vitamin B12, Xopenex, respiratory inhaler t.i.d., Singulair 10 mg and Nexium 40 mg. PAIN CLINIC ASSESSMENT: 1. The patient has a history of osteoarthritis involving his knees. He has had both knees replaced. Also has some pain and discomfort in his neck with radiation down to his arm. 2. VITAL SIGNS: Height 6 feet 2 inches, weight a 325-pounds. BMI is 42. Blood pressure 127/81, pulse 74, respiratory rate 16 and room air saturation 93%. 3. Pain intensity 09/17. 4. Fall risk. The patient has not fallen in the last 3 months. 5. Blood thinner. The patient is not on a blood thinning medication. 6. History of hypertension. The patient is being treated for hypertension. 7. Opioid therapy greater than 6 weeks. The patient get his medications from 1 source is the pain clinic. 8. Risk assessment tool, low risk for use of opioid medications 07/07. [address] [address] PAIN MANAGEMENT CONSULTATION Name: PATRICK WU Room #: REG [facility].#: [id number] Admission: 10/27/17 Attend Phys: Kathy Bryant MD Discharge: Date of : 53 Report #: [id number] 9. Functional assessment tool 45 of 70. 10. Recreational drug use. The patient denies use of recreational drugs. 11. Tobacco: The patient has never smoked. 12. Alcohol: The patient denies use of alcoholic beverages. PHYSICAL EXAMINATION: GENERAL: The patient is well-developed, well-nourished white male. He is obese. Appears his stated age. He is alert and oriented x 3. His speech is fluent. He has his grandson with him. HEENT: Normocephalic, atraumatic. Extraocular eye muscles intact. Hearing is within normal limits. Mucous membranes are moist. NECK: Without adenopathy or JVD. The patient has some discomfort with flexion, extension and movement and rotation of his neck laterally and with bending. HEART: Regular rate. S1, S2. ABDOMEN: Nontender right lower quadrant flank pain. CHEST: Clear to auscultation EXTREMITIES: Upper extremities. Muscle strength is judged to be 5/5 for the major muscle groups. Lower extremity muscle strength is judged to be 5/5 as well. The patient is without scoliosis, kyphosis or lordosis. There was continued at times to have pain, which radiates in the L4-L5 distribution. IMPRESSION: 1. Bilateral knee pain, status post bilateral knee replacement. 2. History of lumbar radicular pain, which is episodic in nature. 3. Cervical radicular pain. May consider cervical epidural steroid injection in in the future. 4. The patient has some GI complaints with use of nonsteroidal antinflammatory medication. 5. Myofascial pain. Pain in the posterior iliac areas. 6. Pain on the right costovertebral angle area. 7. History of kidney stones. RECOMMENDATIONS: We discussed treatment options with the patient. At this juncture, we will continue with his current medications. A script for his medications has been written. The patient also has been given a script to undergo imaging in the right flank area. He feels that this might be an area of return of kidney stones. He will call us if he has any problems. A script for his medications has been dispensed. We would like to thank you for letting us participate in his care. We hope he continues to improve. By: [id number] Kathy Bryant MD /caryl
[2017-10-27 13:30] VITALS: BP 127/81; BP 140/76
== END ==
LOC: RAD 06:54 → PAIN 06:54
DX: M54.2 Cervicalgia (principal); M25.561 Pain in right knee; M25.562 Pain in left knee; M79.1 Myalgia; R10.9 Unspecified abdominal pain; Z79.899 Other long term (current) drug therapy; Z87.442 Personal history of urinary calculi

== ENCOUNTER → 2017-11-24 | Outpatient (CLI) | payer OTHER ==
[~2017-11-24] VITALS: Ht 188 cm; Wt 143.3 kg
[~2017-11-24] MED LIST changes: +AMITRIPTYLINE100 MG PO
--- NOTE | ~2017-11-24 | HPC ---
[facility] [place] [address] PAIN MANAGEMENT CONSULTATION Name: PATRICK WU Room #: REG ROSELYN Ng.#: [id number] Admission: 11/24/17 Attend Phys: Kathy Bryant MD Discharge: Date of : 53 Report #: [id number] THIS REPORT FOR: //name// CC: Juan Luis Torres DO FAM physician/PCP Kathy Bryant DATE OF SERVICE: 11/24/2017 PRIMARY CARE PHYSICIAN: Juan Luis Torres DO The patient has no family physician. FOLLOWUP HISTORY: The patient is a 62-year-old gentleman who has been followed in the pain clinic for a considerable amount of time. He has chronic pain involving his low back. Has pain and discomfort, which is problematic involving his knees. He has had knee replacement. Still has some pain and discomfort. Feels that he has some problems with cervical radicular pain. He has had pain that radiated down into his arm with numbness and tingling. It was found that nonsteroidal medication, Mobic was helpful, but did cause some GI upset. Has some pain in his right flank. The patient states that he was evaluated by his physician and no kidney stones were found. Also, because of the pain, he had gastroesophageal evaluation. He also had a colonoscopy. No obvious reasons for his chronic back pain were found. He remembers that we have spoken regarding opioid medications and their use. We explained that 72,000 people last year as a result of opioid medications. We stated that the CDC has strong recommendations, which we must confirm too. We will decrease his medication today. Feels that he still is having some problems with insomnia. Has taken Elavil 75 mg at night. When this has not been helpful, he has taken 2 tablets. He found that this was helpful in improving his sleep, but did leave him somewhat hungover the following day. ALLERGIES: No known drug allergies. MEDICATIONS: OxyContin 10 mg 1 p.o. b.i.d., oxycodone 20 mg b.i.d. for a total of 30 mg p.o. b.i.d., oxycodone 5 mg p.o. t.i.d., Meloxicam 15 mg, the patient has stopped taking meloxicam, amitriptyline 75 mg, multivitamin, vitamin D, vitamin B12, Xopenex, respiratory inhaler t.i.d., Singulair 10 mg, Nexium 40 mg. PAIN CLINIC ASSESSMENT: 1. The patient does have pain and discomfort, has had bilateral knee replacements. Has pain and discomfort in his low back. He has undergone epidural steroid injections in the distant past. 2. Vital signs: Blood pressure 124/82, pulse 76, respiratory rate 16, room air saturation is 95%. 3. Pain intensity, 5/10. [address] [address] PAIN MANAGEMENT CONSULTATION Name: PATRICK WU Room #: REG [facility].#: [id number] Admission: 11/24/17 Attend Phys: Kathy Bryant MD Discharge: Date of : 53 Report #: [id number] 4. Fall risk. The patient has not fallen in the last 3 months. 5. Blood thinner. The patient is not on a blood thinning medication. 6. History of hypertension. The patient is being treated for hypertension. 7. Opioid therapy greater than 6 weeks. The patient is receiving opioid medication and get them from one source, the pain clinic. 8. Risk assessment tool, 0/3 low risk for opioid use. 9. Functional assessment tool, 45/70 recreational drug use. The patient denies use of recreational drugs. 10. Tobacco: The patient has never smoked. 11. Alcohol: The patient denies frequent use of alcoholic beverages. PHYSICAL EXAMINATION: GENERAL: The patient is a well-developed, somewhat obese, white male. Appears his stated age. He is alert and oriented x 3. Speech is fluent. HEENT: Normocephalic, atraumatic. Extraocular eye muscles intact. Hearing is within normal limits. Mucous membranes are moist. NECK: Without adenopathy or JVD. The patient has some discomfort with flexion and extension of his neck. He is not having as much pain radiating down into his left arm as he has in the past. HEART: Regular rate. S1, S2. ABDOMEN: Protuberant. The patient complains of some low back pain in the right lower quadrant area. Feels that the pain may radiate around towards the abdominal area. CHEST: Clear to auscultation. EXTREMITIES: Upper extremity muscle strength is judged to be 5/5 for the major muscle groups. The patient is not complaining of radicular pain today. Lower extremity muscle strength is judged to be 5/5. The patient without scoliosis, kyphosis or lordosis. Has pain and discomfort in the right posterior-superior iliac spine area near the gluteus selena and the latissimus dorsi. Palpation in this area does reproduce his pain. There is a slight nodule, which feels about the size of a jelly villaseñor in the area of the trigger point. IMPRESSION: 1. Bilateral knee pain, status post bilateral knee replacements. 2. Complex medical management secondary to chronic pain. 3. Cervical radicular pain, not problematic at this point. We will consider epidural steroid injection in the cervical area in the future as needed. 4. Gastrointestinal complaints. The patient underwent GI workup, upper GI as well as a colonoscopy. 4. Myofascial pain in the area of the right posterior-superior iliac spine area. 5. Complained of pain in the right costovertebral area. This examination with x-rays did not show any signs of kidney stones. 6. History of kidney stones. RECOMMENDATIONS: We discussed treatment options with the patient. [facility] [address] [place] [address] PAIN MANAGEMENT CONSULTATION Name: PATRICK WU Room #: REG [facility].#: [id number] Admission: 11/24/17 Attend Phys: Kathy Bryant MD Discharge: Date of : 53 Report #: [id number] benefits of opioid medications were again reviewed. We explained to the patient that CDC's new rules. We must conform to the requirements. At this juncture, we will decrease his OxyContin by 10 mg. We will then have the patient take 4 Percocet 5 mg tablets q.i.d. We explained to the patient that he must conform to the 90 morphine equivalents level. We will continue to decrease his medication in the future. We discussed treatment options with the patient. We have decreased the patient's opioid medications by 5 mg of OxyContin. He will continue with his current medications. We have increased his Elavil from 75 to 100 mg. Hopefully, he will notice an improvement in his sleep pattern with this medication and continue to find efficacious without any hangover. The patient will return in the near future for the possibility of a trigger point injection to the affected trigger point area. It does not appear that the patient is having a lumbar radicular pain. At this juncture, it appears to be more myofascial in nature. We discussed treatment with the patient and how an injection could be beneficial. He has chosen to consider this at a later date. A script for his medications has been written. He was then given a script for OxyContin 20 mg b.i.d., OxyContin 10 mg a.m. and Roxicodone 120 mg daily. We would like to thank you for letting us participate in his care. We hope he continues to improve. By: [id number] Kathy Bryant MD /ODALYS
[2017-11-24 10:49] VITALS: BP 124/82
== END ==
LOC: PAIN 07:19
DX: M54.5 Low back pain (principal); G89.29 Other chronic pain; M54.2 Cervicalgia; M25.561 Pain in right knee; M25.562 Pain in left knee; M79.1 Myalgia; Z79.899 Other long term (current) drug therapy; Z87.442 Personal history of urinary calculi

== ENCOUNTER → 2018-01-24 | Outpatient (CLI) | payer OTHER ==
[~2018-01-24] VITALS: Ht 188 cm; Wt 144.0 kg
[~2018-01-24] MED LIST changes: +NEURONTIN 300300 M1 PO; -VITAMIN B-1250 MC3 INJECTION; +VITAMIN B-12500 MCG PO
--- NOTE | ~2018-01-24 | HPC ---
[facility] [address] [place] [address] PAIN MANAGEMENT CONSULTATION Name: PATRICK WU Room #: REG [facility].#: [id number] Admission: 01/24/18 Attend Phys: Marlene Gustafson Discharge: Date of : 53 Report #: [id number] THIS REPORT FOR: //name// CC: Juan Luis Lopez [facility] physician/PCP Hoa Bryant MD DATE OF SERVICE: 01/24/2018 CHIEF COMPLAINT: "Pain has been increasing in my lower back", being seen here for medication management for his lumbar radiculopathy and cervical radiculopathy and bilateral knee replacements." HISTORY OF PRESENT ILLNESS: This patient is a very pleasant 62-year-old gentleman who has been followed in the pain clinic for his chronic pain by Dr. Boaz Bryant. The patient tells me today that he has seen his orthopedic doctor for his knees and for his lower back and x-rays were taken. No results were with the patient today, but the patient stated he was having some numbness in his left knee, so his orthopedic doctor started him on gabapentin 300 mg twice a day. The patient states this has been causing some dizziness and occasional blurred vision. He has only been taking it about 10 days. The patient states that his back pain is worsening and his pain has increased. He states today that it is an 8/10. ALLERGIES: No known drug allergies. MEDICATIONS: Gabapentin 300 mg twice a day, OxyContin 20 mg twice a day, OxyContin 10 mg twice a day, oxycodone 5 mg tablets 1 tablet by mouth 4 times a day, vitamin D3, vitamin B12, Xopenex as needed, takes Singulair 10 mg daily and Nexium 4 mg once a day. PQRS: 1.The patient has a history of osteoarthritis in his knees, shoulders and back. States he has rheumatoid arthritis in his hands. 2.The patient is 6 feet 2 inches, weight 317 with a BMI of 40.7. 3.Vital signs: Blood pressure 123/73, pulse is 87, respirations 18, oxygen is 95%. 4.Pain score of 8/10. 5.Fall risk. Does complain of dizziness today. Denies help needing for standing or walking and has not fallen in the last 3 months. 6.Denies blood thinners. 7.The patient does have a history of hypertension. 8.Opioid therapy has been greater than 6 weeks and therefore an opioid signed [facility] [address] [place] [address] PAIN MANAGEMENT CONSULTATION Name: PATRICK WU Room #: REG CLI Julisa#: [id number] Admission: 01/24/18 Attend Phys: Marlene Gustafson Discharge: Date of : 53 Report #: [id number] contract is on the chart. 9.Risk assessment tool is low. 10.Functional assessment is 45/70. 11.The patient denies recreational drug use. Denies smoking and denies alcohol use. [facility] PDMP is on chart and no aberrant abuse detected, only one prescriber, Dr. Boaz Bryant is on the chart for his narcotics. PHYSICAL EXAMINATION GENERAL: This patient is a well-developed, well-nourished white male, slightly obese. He is alert and orientated. Speech is fluent and very loquacious. HEENT: Normocephalic, atraumatic. Extraocular nerves intact. Hearing is within normal limits. NECK: Without adenopathy. The patient has some discomfort in flexion and extension, at this time does not radiate down his arms. ABDOMEN: Slightly obese. Denies of kidney pain today. MUSCULOSKELETAL: The patient's upper extremities strength is judged to be 5/5. Lower extremity without significant scoliosis, kyphosis or lordosis. Does complain of knee pain and lower back pain, radicular in nature. IMPRESSION: 1. Bilateral knee pain, status post bilateral knee replacement. Complex medical management secondary to chronic pain. 2. Cervical radiculopathy. 3. Lumbar radiculopathy. 4. Myofascial pain, generalized. 5. History of kidney stones. We reviewed the fact that opiate medications are being used to provide analgesia adequate to support activities of daily living, not attempting to achieve a specific pain score on the 0-10 Visual Analog Scale. The current opiate medications are providing sufficient analgesia to allow the patient to participate in activities of daily living. The patient is not exhibiting any aberrant behavior suggestive of drug diversion. The patient is not having any adverse reactions to medications. The patient is not suffering from daytime somnolence or mental acuity changes. The patient is managing opiate-induced constipation with appropriate xalj-ivx-aonmqcn agents and dietary considerations. The patient was counseled on concern for caution with operating a motor vehicle while using opiate medications. A physical exam was performed and the patient's functional status was evaluated. All patients with back pain were advised against the bed rest greater than 4 days and were advised to return to normal activities. Pain score assessment was noted and the treatment plan was reviewed with the patient. All current medications, both prescribed and OTC were reviewed and reconciled on the [facility] [address] [place] [address] PAIN MANAGEMENT CONSULTATION Name: PATRICK WU Room #: REG CLJolene Egan#: [id number] Admission: 01/24/18 Attend Phys: Marlene Gustafson Discharge: Date of : 53 Report #: [id number] electronic medical record. Tobacco screening was accomplished and smoking cessation was advised when indicated. BMI was noted and diet/exercise modification was recommended for all patients following outside normal parameters. I reviewed with the patient today their responsibilities to safeguard prescription medications, reviewed their responsibility to utilize medications only as prescribed by the physician. They are to seek and receive pain medications only from 1 physician group ( [facility]). They are to use 1 pharmacy and keep the clinic informed if they change pharmacies. Their responsibilities include making followup visits in a timely fashion and to avoid abrupt discontinuation of medication usage. Their responsibilities further include bringing their medications (bottles from the pharmacy with residual pills) to the visit for possible confirmation of pill counts and the patient understands it is their responsibility to submit to random drug screens to ensure both that the medications prescribed are present, and that no other controlled substances are present. All prescriptions provided today were generated electronically. PLAN: Today: 1. The patient is to continue his gabapentin 300 mg twice a day. The patient was encouraged that his dizziness should improve over time since he had just started this medicine. If it does not in the next 2 weeks, then he was instructed to take 2 tablets of gabapentin at bedtime instead of 1 tablet during the day to see if that helps with decreasing his dizziness. 2. Since no drug screen was on chart, a sample was collected today and sent off for a urine drug screen. 3. The patient was encouraged to start Celebrex 200 mg 1 tablet a day. Script given for #30 to see if this helps with some of his inflammation and he has complained of pain all over. A trial will be given for the next month. 4. Script was given of OxyContin 20 mg 1 tablet twice a day #60, OxyContin 10 mg given in the morning #30 given, oxycodone 5 mg 1 tablet 4 times a day as needed for pain. Appointment was made for followup in [address] Boaz Bryant. The patient's care today was discussed with Dr. Boaz Bryant, in collaboration. <ELECTRONICALLY SIGNED> By: Marlene Gustafson 01/25/18 0717 [id number] Marlene Gustafson /nt
[2018-01-24 09:17] VITALS: BP 123/73
== END ==
LOC: PAIN 06:57
DX: M54.16 Radiculopathy, lumbar region (principal); M54.12 Radiculopathy, cervical region; G89.29 Other chronic pain; M25.561 Pain in right knee; M25.562 Pain in left knee; M79.18 Myalgia, other site; Z79.899 Other long term (current) drug therapy; Z96.653 Presence of artificial knee joint, bilateral; Z87.442 Personal history of urinary calculi

== ENCOUNTER → 2018-02-28 | Outpatient (CLI) | payer OTHER ==
[~2018-02-28] VITALS: Ht 188 cm; Wt 147.6 kg
[2018-02-28 08:16] VITALS: BP 133/80
== END ==
LOC: PAIN 07:51
DX: M54.2 Cervicalgia (principal); M25.512 Pain in left shoulder; M25.511 Pain in right shoulder; M54.5 Low back pain; G89.29 Other chronic pain; M06.842 Other specified rheumatoid arthritis, left hand; M06.841 Other specified rheumatoid arthritis, right hand; Z79.891 Long term (current) use of opiate analgesic; Z79.899 Other long term (current) drug therapy

== ENCOUNTER → 2018-03-28 | Outpatient (CLI) | payer OTHER ==
[~2018-03-28] VITALS: Ht 188 cm; Wt 151.1 kg
--- NOTE | ~2018-03-28 | HPC ---
[facility] [address] [place] [address] PAIN MANAGEMENT CONSULTATION Name: PATRICK WU [id number] Admission: 03/28/18 Attend Phys: Marlene Gustafson Discharge: Date of : 53 Report #: [id number] THIS REPORT FOR: //name// CC: Marlene Gustafson [facility] physician/PCP DATE OF SERVICE: 03/28/2018 CHIEF COMPLAINT: Low back pain and some neck pain followup. HISTORY OF PRESENT ILLNESS: The patient returns to the pain clinic today for refill of his pain medicine. He tells me that his current medicine is helpful. He was wondering if his Celebrex was a lower strength. He feels that that has not been helping as much than the anti-inflammatory with his aching in his joints. I reassured the patient that he is getting 200 mg and that is the same dose that he has been on. The patient tells me that he has had a recent bout of bronchitis and has been taking his steroids and his inhalers. He complains of pain of 7/10 today mostly in his low back area, but does have some neck pain and shoulder pain. It is worse with activity and walking, moving his neck; better with his medication. He denies any constipation or daytime sleepiness. ALLERGIES: No known drug allergies. CURRENT LIST OF MEDICATIONS: OxyContin 20 mg twice a day, oxycodone 5 mg, Celebrex 200 mg daily, amitriptyline 100 mg at bedtime, gabapentin 300 mg twice a day, vitamin D daily, vitamin B12 daily, Xopenex inhaler as needed, Singulair 10 mg daily and Nexium 40 mg daily. PQRS: He does have his osteoarthritis in his knees and joints and shoulder. Denies rheumatoid arthritis. His height is 6 feet 3 inches and his weight is 333 pounds, which is an increase. His BMI is 42.8. Vital signs: Blood pressure 147/75, pulse is 72, respirations 16, oxygen sat is 95%. Pain score today is 7/10. The patient does not have any dizziness, has not fallen recently and does not need help walking or standing. He is not on any blood thinners, but does take antihypertensive medicines. His opioid therapy is greater than 6 weeks; therefore, an opioid signed contract is on the chart. His risk assessment tool is low. His functional assessment is 45/70. The patient denies any recreational drug use. He does not smoke and does not drink alcohol. Prescription monitoring system shows that he has been filling appropriately from Dr. Boaz Bryant. He tells me he safeguards his medications. PHYSICAL EXAMINATION: GENERAL: The patient is a well-developed, well-nourished, white gentleman, who appears his stated age. He is alert and orientated. His affect is appropriate. His speech is fluent. His weight has increased from 317 to 333 today. HEENT: Normocephalic, atraumatic. Extraocular eye muscles are intact. [address] [address] PAIN MANAGEMENT CONSULTATION Name: PATRICK WU Room #: ANGELA Egan#: [id number] Admission: 03/28/18 Attend Phys: Marlene Gustafson Discharge: Date of : 53 Report #: [id number] membranes are moist. NECK: Without JVD or adenopathy. He does have limited range of motion in his flexion and extension that causes some discomfort in his neck that does radiate into his left shoulder. EXTREMITIES: Upper extremity strength judged to be 5/5 for major muscle groups. The patient is without significant scoliosis, kyphosis or lordosis. Muscle strength and lower extremity judged to be 5/5 with some complaints in his lower back and knees. He does walk with an antalgic gait. IMPRESSION: 1. Bilateral knee pain, status post bilateral knee replacements. 2. Complex medical management secondary to chronic pain. 3. Cervical radiculopathy. 4. Gastroesophageal complaints with nonsteroidal anti-inflammatories. 5. Myofascial pain. 6. Bronchitis. We reviewed the fact that opiate medications are being used to provide analgesia adequate to support activities of daily living, not attempting to achieve a specific pain score on the 0-10 Visual Analog Scale. The current opiate medications are providing sufficient analgesia to allow the patient to participate in activities of daily living. The patient is not exhibiting any aberrant behavior suggestive of drug diversion. The patient is not having any adverse reactions to medications. The patient is not suffering from daytime somnolence or mental acuity changes. The patient is managing opiate-induced constipation with appropriate ndfy-ecx-jgunnaf agents and dietary considerations. The patient was counseled on concern for caution with operating a motor vehicle while using opiate medications. A physical exam was performed and the patient's functional status was evaluated. All patients with back pain were advised against the bed rest greater than 4 days and were advised to return to normal activities. Pain score assessment was noted and the treatment plan was reviewed with the patient. All current medications, both prescribed and OTC were reviewed and reconciled on the electronic medical record. Tobacco screening was accomplished and smoking cessation was advised when indicated. BMI was noted and diet/exercise modification was recommended for all patients following outside normal parameters. I reviewed with the patient today their responsibilities to safeguard prescription medications, reviewed their responsibility to utilize medications only as prescribed by the physician. They are to seek and receive pain medications only from 1 physician group ( [facility]). They are to use 1 pharmacy and keep the clinic informed if they change pharmacies. Their responsibilities include making followup visits in a timely fashion and to avoid abrupt discontinuation of medication usage. Their responsibilities further [facility] [address] [place] [address] PAIN MANAGEMENT CONSULTATION Name: PATRICK WU Room #: REG [facility] M..#: [id number] Admission: 03/28/18 Attend Phys: Marlene Gustafson Discharge: Date of : 53 Report #: [id number] include bringing their medications (bottles from the pharmacy with residual pills) to the visit for possible confirmation of pill counts and the patient understands it is their responsibility to submit to random drug screens to ensure both that the medications prescribed are present, and that no other controlled substances are present. All prescriptions provided today were generated electronically. PLAN: We discussed treatment options with the patient today. I did reassure him that his Celebrex 200 mg that he takes daily is the same strength that he has been on for a significant amount of time. Script given for that, #30 pills. Second medication, amitriptyline 100 mg, #30 at bedtime. Next medication is OxyIR 5 mg every 6 hours, #120. Final medication is OxyContin 20 mg every 12 hours, #60. The patient will return in 1 month's time period for refill of his medications. The patient tells me that he will continue to safeguard his medicines and take them appropriately and not trying to take more on some days when his pain is increased, so he is out before the end of the month, which he has done this in the past. The patient will try to take them as prescribed max of 4 pills a day of his breakthrough medicine. The patient is agreeable with this plan of care. The patient seen in collaboration today with Dr. Alessandro Bryant. <ELECTRONICALLY SIGNED> By: Marlene Gustafson 03/29/18 0839 [id number] Marlene Gustafson /nt
[2018-03-28 08:18] VITALS: BP 147/75
== END ==
LOC: PAIN 06:53
DX: M25.561 Pain in right knee (principal); M25.562 Pain in left knee; M54.12 Radiculopathy, cervical region; M79.18 Myalgia, other site; J40 Bronchitis, not specified as acute or chronic; K21.9 Gastro-esophageal reflux disease without esophagitis; G89.29 Other chronic pain; Z96.653 Presence of artificial knee joint, bilateral

== ENCOUNTER → 2018-04-25 | Outpatient (CLI) | payer OTHER ==
[~2018-04-25] VITALS: Ht 188 cm; Wt 154.1 kg
[2018-04-25 08:59] VITALS: BP 146/86
--- NOTE | 2018-04-25 09:02 | NUR ---
Pain Clinic Assessment: 1. History of Osteoarthritis: KNEES all joints History of Rheumatoid Arthritis: hands 2. Height: 6 ft. 2 in. 188.0 cm. Weight: 339.8 lb. oz. 154.133 kg. Patient's BMI: 43.6 3. Vital Signs: BP: 146/86 Pulse: 92 Resp: 18 Temp: 02 Sat: 96 ECG Mon: 4. Pain Intensity: 6 5. Fall Risk: Dizziness: N Needs help standing or walking: N Fallen in the last 3 months: N Fall risk comments: 6. Patient on Blood Thinner: None 7. History of Hypertension: Y 8. Opioid Therapy greater than 6 weeks: Y Opiate Contract Signed: 11/04/15 9. Risk Assessment Tool Provided: LOW RISK 0/3 10. Functional Assessment Tool: 11. Recreational Drug Use: Never Drug Type: Tobacco Use: Never Smoker Tobacco Type: Amount or Packs/day: How Many Years: Alcohol Use: No Frequency: Quant:
--- NOTE | 2018-04-26 08:09 | HPC ---
[facility] [address] [place] [address] PAIN MANAGEMENT CONSULTATION Name: PATRICK WU Room #: REG [facility] Hernandez.#: [id number] Admission: 04/25/18 Attend Phys: Marlene Gustafson Discharge: Date of : 53 Report #: [id number] THIS REPORT FOR: //name// CC: Marlene Gustafson [facility] physician/PCP DATE OF SERVICE: 04/25/2018 CHIEF COMPLAINT: Low back pain and some neck pain. HISTORY OF PRESENT ILLNESS: The patient returns to the pain clinic today for followup of his medication management. He tells me that his current pain regimen is doing quite well in relieving his pain. He feels that since he has added to his gabapentin taking that twice a day even with the reduction of his narcotic use that his pain score has leveled out and it is an average of 5-6 a day. Does complain of some neck pain and a slight headache, but otherwise his pain is worse with his walking and activity, kind of a constant throbbing pain, but he tells me that his leg pains and back pain have significantly decreased with his gabapentin use. He would like a refill of his medications today. ALLERGIES: No known drug allergies. CURRENT LIST OF MEDICATIONS: Amitriptyline 100 mg at bedtime, Celebrex 200 mg daily, OxyContin 20 mg twice a day, oxycodone 5 mg 4 times a day, gabapentin 300 mg twice a day, vitamin D daily, vitamin B12 daily, Singulair 10 mg daily, Nexium 40 mg daily. PQRS: 1. He has osteoarthritic changes in his knees, joints and shoulders. He denies rheumatoid arthritis. 2. Height is 6 feet 2 inches, weight is 339, BMI is 43. 3. Vital Signs: 146/86, pulse is 92, respirations 18, oxygen sat is 96. 4. Pain score is 6/10. 5. Fall risk. Denies dizziness, does not need help walking or standing. He has not fallen in the last 3 months. 4. He denies blood thinners and does take antihypertensive medicines. 5. Opioid therapy is greater than 6 weeks, therefore, an opioid signed contract is on the chart. 6. His risk assessment tool is low. His functional assessment is 45/70. 7. Recreational drug use, he denies. Does not smoke, does not drink alcohol. We discussed the prescription monitoring system. The patient is filling appropriately from Dr. Alessandro Bryant. He does have a recent urine drug screen on the chart. PHYSICAL EXAMINATION: [facility] [address] [place] [address] PAIN MANAGEMENT CONSULTATION Name: PATRICK WU Room #: REG [facility]#: [id number] Admission: 04/25/18 Attend Phys: Marlene Gustafson Discharge: Date of : 53 Report #: [id number] GENERAL: This is a well-developed, well-nourished white gentleman who appears his stated age, morbidly obese but he is alert and oriented. His affect is appropriate. His speech is fluent. His weight has again increased from 333-339. HEENT: Normocephalic, atraumatic. Extraocular eye muscles are intact. Mucous membranes are moist. NECK: Complains of slight discomfort with range of motion in flexion and extension that radiates into his left shoulder. EXTREMITIES: Upper extremity strength judged to be 5/5 with all major muscle groups. The patient is without significant scoliosis, kyphosis or lordosis. He does walk with an antalgic gait. IMPRESSION: 1. Bilateral knee pain, status post bilateral knee replacement. 2. Complex medical management secondary to chronic pain. 3. Cervical radiculopathy. 4. Gastroesophageal complaints that have decreased slightly, though he is on nonsteroidal anti-inflammatories. 5. Myofascial pain. 6. Bronchitis. We reviewed the fact that opiate medications are being used to provide analgesia adequate to support activities of daily living, not attempting to achieve a specific pain score on the 0-10 Visual Analog Scale. The current opiate medications are providing sufficient analgesia to allow the patient to participate in activities of daily living. The patient is not exhibiting any aberrant behavior suggestive of drug diversion. The patient is not having any adverse reactions to medications. The patient is not suffering from daytime somnolence or mental acuity changes. The patient is managing opiate-induced constipation with appropriate fndb-sjw-koqaymc agents and dietary considerations. The patient was counseled on concern for caution with operating a motor vehicle while using opiate medications. A physical exam was performed and the patient's functional status was evaluated. All patients with back pain were advised against the bed rest greater than 4 days and were advised to return to normal activities. Pain score assessment was noted and the treatment plan was reviewed with the patient. All current medications, both prescribed and OTC were reviewed and reconciled on the electronic medical record. Tobacco screening was accomplished and smoking cessation was advised when indicated. BMI was noted and diet/exercise modification was recommended for all patients following outside normal parameters. I reviewed with the patient today their responsibilities to safeguard prescription medications, reviewed their responsibility to utilize medications only as prescribed by the physician. They are to seek and receive pain [address] [address] PAIN MANAGEMENT CONSULTATION Name: PATRICK WU Room #: REG [facility] Julisa#: [id number] Admission: 04/25/18 Attend Phys: Marlene Gustafson Discharge: Date of : 53 Report #: [id number] medications only from 1 physician group ( [facility]). They are to use 1 pharmacy and keep the clinic informed if they change pharmacies. Their responsibilities include making followup visits in a timely fashion and to avoid abrupt discontinuation of medication usage. Their responsibilities further include bringing their medications (bottles from the pharmacy with residual pills) to the visit for possible confirmation of pill counts and the patient understands it is their responsibility to submit to random drug screens to ensure both that the medications prescribed are present, and that no other controlled substances are present. All prescriptions provided today were generated electronically. PLAN: 1. We discussed treatment options with this patient today. We will continue with his current medications. He feels like he has been doing well recently on his current regimen. Scripts given today were Celebrex 200 mg 1 p.o. every day, #30; amitriptyline 100 mg at bedtime, #30; OxyIR 5 mg #120; OxyContin 20 mg b.i.d., #60. 2. The patient will return for followup in 1 month. Appointment will be made. The patient will continue to safeguard his medications and take them as prescribed and not run short at the end of the month, which he has done in the past. The patient tells me he did better this month and is feeling better today because of that. 3. The patient seen in collaboration with Dr. Alessandro Bryant. <ELECTRONICALLY SIGNED> By: Marlene Gustafson 04/26/18 0809 [id number] Marlene Gustafson /caryl
== END ==
LOC: PAIN 07:06
DX: M54.12 Radiculopathy, cervical region (principal); M25.561 Pain in right knee; M25.562 Pain in left knee; J40 Bronchitis, not specified as acute or chronic; M79.18 Myalgia, other site; K21.9 Gastro-esophageal reflux disease without esophagitis; Z79.899 Other long term (current) drug therapy

== ENCOUNTER 2018-05-23 10:01 | Emergency (ER) | payer OTHER ==
[~2018-05-23] VITALS: Ht 188 cm; Wt 151.5 kg
[~2018-05-23 10:01] MED LIST changes: -ADVAIR HFA 230M12 GM INH; -ONDANSETRON HCL4 M2 PO
[2018-05-23] MEDS ORDERED: ADVAIR HFA 230M12 GM INH (10:37)
[2018-05-23] MEDS ORDERED: ONDANSETRON HCL4 M2 PO (11:22)
[2018-05-23 11:37] VITALS: BP 124/62
== END 2018-05-23 11:38 | disposition home or self-care (01) ==
LOC: ER 10:01
DX: S06.0X0A Concussion without loss of consciousness, initial encounter (principal); K21.9 Gastro-esophageal reflux disease without esophagitis; M19.90 Unspecified osteoarthritis, unspecified site; J44.9 Chronic obstructive pulmonary disease, unspecified; M06.9 Rheumatoid arthritis, unspecified; E66.9 Obesity, unspecified; Z77.22 Contact with and (suspected) exposure to environmental tobacco smoke (acute) (chronic); Z90.49 Acquired absence of other specified parts of digestive tract; Z68.44 Body mass index [BMI] 60.0-69.9, adult; W00.0XXA Fall on same level due to ice and snow, initial encounter; Y93.89 Activity, other specified; Y92.89 Other specified places as the place of occurrence of the external cause; Y99.8 Other external cause status

== ENCOUNTER → 2018-05-23 | Outpatient (CLI) | payer OTHER ==
[~2018-05-23] VITALS: Ht 188 cm; Wt 155.6 kg
[~2018-05-23] MED LIST changes: +ADVAIR HFA 230M12 GM INH; +ONDANSETRON HCL4 M2 PO; +ROBAXIN 750 MG750 M1 PO
[2018-05-23 09:38] VITALS: BP 147/95
--- NOTE | 2018-05-23 09:39 | NUR ---
Pain Clinic Assessment: 1. History of Osteoarthritis: KNEES all joints History of Rheumatoid Arthritis: hands 2. Height: 6 ft. 2 in. 188.0 cm. Weight: 343.0 lb. oz. 155.584 kg. Patient's BMI: 44.0 3. Vital Signs: BP: 147/95 Pulse: 80 Resp: 18 Temp: 02 Sat: 95 ECG Mon: 4. Pain Intensity: 10 5. Fall Risk: Dizziness: Y Needs help standing or walking: N Fallen in the last 3 months: Y Fall risk comments: FELL ON ICE ON MONDAY 6. Patient on Blood Thinner: None 7. History of Hypertension: Y 8. Opioid Therapy greater than 6 weeks: Y Opiate Contract Signed: 11/04/15 9. Risk Assessment Tool Provided: LOW RISK 0/3 10. Functional Assessment Tool: 11. Recreational Drug Use: Never Drug Type: Tobacco Use: Never Smoker Tobacco Type: Amount or Packs/day: How Many Years: Alcohol Use: No Frequency: Quant:
--- NOTE | 2018-05-24 08:31 | HPC ---
[facility] [address] [address] PAIN MANAGEMENT CONSULTATION Name: PATRICK WU [id number] Admission: 05/23/18 Attend Phys: Marlene Gustafson Discharge: Date of : 53 Report #: [id number] THIS REPORT FOR: //name// CC: Marlene Gustafson [facility] physician/PCP DATE OF SERVICE: 05/23/2018 CHIEF COMPLAINT: Low back pain, neck pain. HISTORY OF PRESENT ILLNESS: The patient returns to the pain clinic today for medication refill. He does tell me that he fell and hit his head on Monday. He tells me he has been experiencing some nausea, blurred vision, headaches and wondering if we can help him with this today. He did not go to the Emergency Room when he fell though his family encouraged him to do so. The patient tells me he is also having leg cramps in his calves that have been very significant. In the past, he has taken Robaxin to help with his muscle spasms. He was wondering if he could have a prescription for that. The patient complains of pain of 10/10 today in his low back, shoulder and neck; worse with activity and walking. He denies any constipation and would like a refill of his medication today. ALLERGIES: No known drug allergies. CURRENT LIST OF MEDICATIONS: Celebrex 200 mg daily, amitriptyline 100 mg at bedtime, OxyContin 20 mg twice a day, oxycodone 5 mg 4 times a day, gabapentin 300 b.i.d., vitamin D 5000 units weekly, vitamin B12 daily, Xopenex inhaler as needed, Singulair 10 mg daily and Nexium 40 mg daily. PQRS: 1. Has history of osteoarthritis in his bilateral knees and his joints. He tells me he has rheumatoid arthritis in his hands. 2. Height is 6 feet 2 inches, weight is 343, BMI is 44. 3. Vital Signs: Blood pressure 147/95, pulse is 80, respirations 18, oxygen sat is 95. 4. Pain score is 10/10. 6. Fall risk: He complains of some dizziness, does not need help walking or standing, has fallen on the ice this past Monday. 7. Blood thinners, he denies. He does have a history of hypertension. 8. Opiate therapy is greater than 6 weeks, therefore, an opiate signed contract is on the chart. 9. His risk assessment tool is low. His functional assessment is 45/70. 10. Recreational drug use, he denies. He is not a smoker and does not drink alcohol. We did check the prescription monitoring system. The patient is filling appropriately from his narcotic medication. No other providers. He tells me that he does safeguard his medications. There is a drug screen within [address] [address] PAIN MANAGEMENT CONSULTATION Name: PATRICK WU [facility] #: [facility] [id number] Admission: 05/23/18 Attend Phys: Marlene Gustafson Discharge: Date of : 53 Report #: [id number] the chart within 6 months ago. PHYSICAL EXAMINATION: GENERAL: This is a well-developed, well-nourished, overweight, morbidly obese gentleman who appears his stated age. He is alert and orientated. His affect is appropriate. His speech is fluent. VITAL SIGNS: His weight has increased and continues to do so in the last several months from now 339 to 343. HEENT: Normocephalic, atraumatic. Extraocular eye muscles are intact. Mucous membranes are moist. The patient complains of blurred vision today and brizuela. NECK: Complains of discomfort in his neck and his upper shoulders, able to complete all areas of range of motion. EXTREMITIES: Upper extremity strength judged to be 5/5 in all major muscle groups. The patient is without significant scoliosis, kyphosis or lordosis. He does walk with an antalgic gait. IMPRESSION: 1. Bilateral knee pain, status post bilateral knee replacement. 2. Complex medical management related to secondary pain. 3. Cervical radiculopathy. 4. Gastroesophageal complaints. 5. Mild fascial pain. 6. Headache, pain today status post fall. We reviewed the fact that opiate medications are being used to provide analgesia adequate to support activities of daily living, not attempting to achieve a specific pain score on the 0-10 Visual Analog Scale. The current opiate medications are providing sufficient analgesia to allow the patient to participate in activities of daily living. The patient is not exhibiting any aberrant behavior suggestive of drug diversion. The patient is not having any adverse reactions to medications. The patient is not suffering from daytime somnolence or mental acuity changes. The patient is managing opiate-induced constipation with appropriate slpn-tzc-lclbnda agents and dietary considerations. The patient was counseled on concern for caution with operating a motor vehicle while using opiate medications. A physical exam was performed and the patient's functional status was evaluated. All patients with back pain were advised against the bed rest greater than 4 days and were advised to return to normal activities. Pain score assessment was noted and the treatment plan was reviewed with the patient. All current medications, both prescribed and OTC were reviewed and reconciled on the electronic medical record. Tobacco screening was accomplished and smoking cessation was advised when indicated. BMI was noted and diet/exercise modification was recommended for all patients following outside normal parameters. [facility] [address] [place] [address] PAIN MANAGEMENT CONSULTATION Name: PATRICK WU Room #: REG [facility]WN[facility]olene Ng.#: [id number] Admission: 05/23/18 Attend Phys: Marlene LAURIE Gustafson Discharge: Date of : 53 Report #: [id number] I reviewed with the patient today their responsibilities to safeguard prescription medications, reviewed their responsibility to utilize medications only as prescribed by the physician. They are to seek and receive pain medications only from 1 physician group ( [facility]). They are to use 1 pharmacy and keep the clinic informed if they change pharmacies. Their responsibilities include making followup visits in a timely fashion and to avoid abrupt discontinuation of medication usage. Their responsibilities further include bringing their medications (bottles from the pharmacy with residual pills) to the visit for possible confirmation of pill counts and the patient understands it is their responsibility to submit to random drug screens to ensure both that the medications prescribed are present, and that no other controlled substances are present. All prescriptions provided today were generated electronically. PLAN: 1. We discussed treatment options with the patient today. The patient tells me that he has fallen and hit his head, did not go to seek medical attention, thought that maybe we could take care of that today. He tells me he has had some nausea, dizziness, blurred vision. I encouraged him with advice also of Dr. Bryant to either seek medical attention at the Emergency Room or he needs to go see his primary care doctor today. We do not want him to have any head trauma, like a bleed that could have happened from his fall and that needs to be addressed. The patient verbalizes understanding. We will call his primary doctor or go to the Emergency Room today. 2. Scripts given today for his OxyContin 20 mg twice a day as well as OxyIR 5 mg 4 times a day. Script was also given for Celebrex 200 mg daily and amitriptyline 100 mg daily. 3. The patient complained of significant leg cramping. In the past, he had some Robaxin that he used very sparingly when he would have cramps. I encouraged the patient to take tonic water and also when he sees his primary care doctor on Monday to possibly have his potassium level drawn or maybe they could do that in the Emergency Room when he sees them, but script given for Robaxin 750, #60 with no additional refills for his occasional muscle spasms. 4. The patient will be seen in 1 month. Appointment made. The patient seen in collaboration with Dr. Alessandro Bryant. <ELECTRONICALLY SIGNED> By: Marlene Gustafson 05/24/18 0831 [id number] Marlene Gustafson /caryl
== END ==
LOC: PAIN 06:56
DX: M25.561 Pain in right knee (principal); M25.562 Pain in left knee; R51 Headache; M54.12 Radiculopathy, cervical region; K21.9 Gastro-esophageal reflux disease without esophagitis; Z79.899 Other long term (current) drug therapy; Z96.653 Presence of artificial knee joint, bilateral

== ENCOUNTER → 2018-06-20 | Outpatient (CLI) | payer OTHER ==
[~2018-06-20] VITALS: Ht 188 cm; Wt 153.3 kg
[~2018-06-20] MED LIST changes: +ADVAIR HFA 230M12 GM INH; +ONDANSETRON HCL4 M2 PO
[2018-06-20 09:37] VITALS: BP 130/77
--- NOTE | 2018-06-20 09:40 | NUR ---
Pain Clinic Assessment: 1. History of Osteoarthritis: KNEES all joints History of Rheumatoid Arthritis: hands 2. Height: 6 ft. 2 in. 188.0 cm. Weight: 338.0 lb. oz. 153.316 kg. Patient's BMI: 43.4 3. Vital Signs: BP: 130/77 Pulse: 96 Resp: 18 Temp: 02 Sat: 95 ECG Mon: 4. Pain Intensity: 8 5. Fall Risk: Dizziness: N Needs help standing or walking: N Fallen in the last 3 months: N Fall risk comments: FELL ON ICE ON MONDAY 6. Patient on Blood Thinner: None 7. History of Hypertension: Y 8. Opioid Therapy greater than 6 weeks: Y Opiate Contract Signed: 11/04/15 9. Risk Assessment Tool Provided: LOW RISK 0/3 10. Functional Assessment Tool: 11. Recreational Drug Use: Never Drug Type: Tobacco Use: Never Smoker Tobacco Type: Amount or Packs/day: How Many Years: Alcohol Use: No Frequency: Quant:
--- NOTE | 2018-06-21 08:31 | HPC ---
[facility] [address] [place] [address] PAIN MANAGEMENT CONSULTATION Name: PATRICK WU Room #: REG [facility].#: [id number] Admission: 06/20/18 ������������������ Attend Phys: Marlene Gustafson Discharge: ������������������ Date of : 53 Report #: [id number] THIS REPORT FOR: //name// CC: Marlene Gustafson [facility] physician/PCP DATE OF SERVICE: 06/20/2018 CHIEF COMPLAINT: Low back pain, leg pain and neck pain. HISTORY OF PRESENT ILLNESS: The patient returns to the pain clinic today for followup for his medication management. He tells me that his pain score today is 8/10, mostly in his lower back. He does complain of some bilateral leg pain. He tells me that he was swimming recently and when he got out he had an episode that lasted a couple of minutes of his right leg turning out. It felt like it was a spasm and then later in the day, he had another spasm involving the left leg. The patient was unable to get his Robaxin filled that we were going to trial him with last month. Due to some insurance issues, we will rewrite that medicine today with Dr. Bryant and see if he is able to get that covered this month. The patient tells me that his constipation is managed every day with Colace and occasionally takes MiraLax. He denies any daytime sleepiness. He tells me that his pain score is again 8/10, mostly in his back, worse with his walking and activity, but his medications are very helpful and would like a refill today. CURRENT ALLERGIES: No known drug allergies. CURRENT MEDICATIONS: OxyContin 20 mg b.i.d., oxycodone 5 mg up to 4 times a day, Robaxin 750 mg b.i.d. as needed, Advair daily, Celebrex 200 mg daily, amitriptyline 100 mg at bedtime, gabapentin 300 mg b.i.d., vitamin D3, vitamin B12, Xopenex as needed, Singulair 10 mg daily and Nexium 40 mg daily. PQRS: 1. Does have a history of osteoarthritis in his bilateral knees and his joints. He tells me that he has rheumatoid arthritis in his hands. 2. Height is 6 feet 2 inches, weight is 338, BMI is 43. 3. Vital signs: Blood pressure 130/77, pulse is 96, respirations 18, oxygen sat is 95. 4. Pain score is 8/10. 5. Fall risk: Denies dizziness. Does not need any help with standing or walking. He tells me that he did fall within the last month. 6. The patient is not on any blood thinners, does take medicine for hypertension. 7. Opioid therapy is greater than 6 weeks, therefore, an opiate contract is on the chart. 8. Risk assessment tool is low. Functional assessment is 45/70. [address] [address] PAIN MANAGEMENT CONSULTATION Name: PATRICK WU Room #: REG [facility].#: [id number] Admission: 06/20/18 ������������������ Attend Phys: Marlene Gustafson Discharge: ������������������ Date of : 53 Report #: [id number] 9. Recreational drug use, he denies. He is not a smoker and does not drink alcohol. We checked the prescription monitoring system. The patient is filling appropriately for his medicines from Dr. Bryant and is on time for his appointment and medication refills. There is a recent drug screen on his chart. The patient tells me he does safeguard his medications. PHYSICAL EXAMINATION: GENERAL: This is a well-developed, well-nourished, overweight 62-year-old that appears his stated age. He is alert and orientated, quite loquacious in his history that he gives us and his affect is appropriate. HEENT: Normocephalic, atraumatic. Extraocular eye muscles are intact. Mucous membranes are moist. NECK: Denies discomfort in his neck today. He does have good range of motion in his neck today. EXTREMITIES: Upper extremity strength judged to be 5/5 in all major muscle groups. The patient is without significant scoliosis, kyphosis or lordosis. He does walk with an antalgic gait and his lower extremity strength judged to be 5/5 in all major muscle groups. He does complain of some occasional spasms in his bilateral legs. ASSESSMENT: 1. Bilateral knee pain, status post bilateral knee replacement. 2. Complex medical management secondary to his pain. 3. Cervical radiculopathy. 4. Gastroesophageal complaints. 5. Myofascial pain. We reviewed the fact that opiate medications are being used to provide analgesia adequate to support activities of daily living, not attempting to achieve a specific pain score on the 0-10 Visual Analog Scale. The current opiate medications are providing sufficient analgesia to allow the patient to participate in activities of daily living. The patient is not exhibiting any aberrant behavior suggestive of drug diversion. The patient is not having any adverse reactions to medications. The patient is not suffering from daytime somnolence or mental acuity changes. The patient is managing opiate-induced constipation with appropriate ffhs-lnj-yigomch agents and dietary considerations. The patient was counseled on concern for caution with operating a motor vehicle while using opiate medications. A physical exam was performed and the patient's functional status was evaluated. All patients with back pain were advised against the bed rest greater than 4 days and were advised to return to normal activities. Pain score assessment was noted and the treatment plan was reviewed with the patient. All current medications, both prescribed and OTC were reviewed and reconciled on the [facility] [address] [place] [address] PAIN MANAGEMENT CONSULTATION Name: PATRICK WU Room #: REG [facility] M..#: [id number] Admission: 06/20/18 ������������������ Attend Phys: Marlene Gustafson Discharge: ������������������ Date of : 53 Report #: [id number] electronic medical record. Tobacco screening was accomplished and smoking cessation was advised when indicated. BMI was noted and diet/exercise modification was recommended for all patients following outside normal parameters. I reviewed with the patient today their responsibilities to safeguard prescription medications, reviewed their responsibility to utilize medications only as prescribed by the physician. They are to seek and receive pain medications only from 1 physician group ( [facility]). They are to use 1 pharmacy and keep the clinic informed if they change pharmacies. Their responsibilities include making followup visits in a timely fashion and to avoid abrupt discontinuation of medication usage. Their responsibilities further include bringing their medications (bottles from the pharmacy with residual pills) to the visit for possible confirmation of pill counts and the patient understands it is their responsibility to submit to random drug screens to ensure both that the medications prescribed are present, and that no other controlled substances are present. All prescriptions provided today were generated electronically. PLAN: 1. We discussed treatment options with the patient today. He tells me that he had difficulty getting his Robaxin filled last month and was unable to have that filled due to some insurance issues. We will have Dr. rByant rewrite that medication today and see if he was able to get it approved and fill it this month. I think that would be very beneficial for the patient's spasms that he has been complaining about in his legs. Script given today for Robaxin 750 mg b.i.d. 2. Refill of his OxyContin 20 mg b.i.d. #60 and oxycodone 5 mg #120 was also given today. The patient does not need his amitriptyline or his Celebrex refilled at this visit. 3. Dr. Bryant did see the patient and collaborate with care today. He will make an appointment for 1 month followup for his medications. ��������������������������������������������� <ELECTRONICALLY SIGNED> ���������������������������������������� By: Marlene Gustafson ��������������������������������������������� 06/21/18 0831 [id number] Marlene Gustafson /caryl
== END ==
LOC: PAIN 07:04
DX: M54.12 Radiculopathy, cervical region (principal); M25.561 Pain in right knee; M25.562 Pain in left knee; M79.18 Myalgia, other site; K21.9 Gastro-esophageal reflux disease without esophagitis; Z79.899 Other long term (current) drug therapy; Z96.653 Presence of artificial knee joint, bilateral

== ENCOUNTER → 2018-07-18 | Outpatient (CLI) | payer OTHER ==
[~2018-07-18] VITALS: Ht 188 cm; Wt 155.0 kg
[2018-07-18 09:11] VITALS: BP 120/57
--- NOTE | 2018-07-18 09:32 | NUR ---
Pain Clinic Assessment: 1. History of Osteoarthritis: KNEES all joints History of Rheumatoid Arthritis: hands 2. Height: 6 ft. 2 in. 188.0 cm. Weight: 341.8 lb. oz. 155.040 kg. Patient's BMI: 43.9 3. Vital Signs: BP: 120/57 Pulse: 86 Resp: 22 Temp: 02 Sat: 96 ECG Mon: 4. Pain Intensity: 8 5. Fall Risk: Dizziness: N Needs help standing or walking: N Fallen in the last 3 months: N Fall risk comments: FELL ON ICE ON MONDAY 6. Patient on Blood Thinner: None 7. History of Hypertension: Y 8. Opioid Therapy greater than 6 weeks: Y Opiate Contract Signed: 11/04/15 9. Risk Assessment Tool Provided: LOW RISK 0/3 10. Functional Assessment Tool: 11. Recreational Drug Use: Never Drug Type: Tobacco Use: Never Smoker Tobacco Type: Amount or Packs/day: How Many Years: Alcohol Use: No Frequency: Quant:
--- NOTE | 2018-07-19 13:29 | HPC ---
[facility] [address] [place] [address] PAIN MANAGEMENT CONSULTATION Name: PATRICK WU Room #: REG [facility] Julisa#: [id number] Admission: 07/18/18 ������������������ Attend Phys: Marlene Gustafson Discharge: ������������������ Date of : 53 Report #: [id number] THIS REPORT FOR: //name// CC: Marlene Gustafson [facility] physician/PCP DATE OF SERVICE: 07/18/2018 CHIEF COMPLAINT: Low back pain, leg pain and neck pain. HISTORY OF PRESENT ILLNESS: This is a pleasant 63-year-old gentleman who returns to the pain clinic today for refill of his pain medicine. He tells me that they are helpful in relieving his pain. He finds that he was getting overly sleepy last month and he had stopped his gabapentin, his Robaxin and his Celebrex for a few days, then only restarted his Robaxin that he was taking for cramps and muscle spasms. He tells me he is not sleepy as he was. He has not restarted his gabapentin or his Celebrex. He tells me he is having some joint pain, so he is going to try and restart his Celebrex and see how he does. If he feels like he is able to remain off his gabapentin then he will do that. If not, he will start slowly on that medicine again. He tells me though he had been taking his pain pills the entire time he was doing a trial of to see which medicine was making him sleepy. He rates his pain score 8/10 today, again worse in his neck and lower back and his knee. He tells me activity and walking make his pain worse, but his medicines are helpful. He denies any problems with constipation and of course the daytime sleepiness was addressed above with all the medicine changes that he himself initiated. ALLERGIES: No known drug allergies. CURRENT LIST OF MEDICATIONS: OxyContin 20 mg b.i.d., oxycodone 5 mg 4 times a day, Robaxin 750 mg b.i.d., Advair daily, Celebrex 200 mg daily, amitriptyline 100 mg at bedtime, gabapentin 300 mg b.i.d., stopped currently, vitamin D3 daily, vitamin B12 daily, Xopenex as needed, Singulair 10 mg daily and Nexium 40 mg daily. PQRS: 1. He has osteoarthritis in his knees and hands. He has rheumatoid arthritis in his hands. 2. Height is 6 feet 2 inches, weight is 341, a BMI of 43. 3. Vital signs: Blood pressure 120/57, pulse is 86, respirations 22, oxygen sat is 96. 4. Pain score is 8/10. 5. Fall risk. Denies dizziness. Does not need help walking or standing, has fallen in the last 3 months. 6. The patient is not on any blood thinners. He does take medicine for hypertension. [address] [address] PAIN MANAGEMENT CONSULTATION Name: PATRICK WU Room #: REG [facility] Egan#: [id number] Admission: 07/18/18 ������������������ Attend Phys: Marlene Gustafson Discharge: ������������������ Date of : 53 Report #: [id number] 7. Opiate therapy is greater than 6 weeks; therefore, an opioid signed contract is on the chart. 8. Risk assessment tool is low. Functional assessment is 45/70. 9. Recreational drug use, he denies. He is not a smoker and does not drink alcohol. We did check the prescription monitoring system. The patient is filling appropriately from Dr. Bryant using [facility]. There is a drug screen on the chart in the past year. PHYSICAL EXAMINATION: GENERAL: This is a well-developed, well-nourished, very obese 63-year-old gentleman who appears his stated age. He is alert and orientated, loquacious historian. HEENT: Normocephalic, atraumatic. Extraocular eye muscles are intact. Mucous membranes are moist. EXTREMITIES: Upper extremity strength judged to be 5/5 in all major muscle groups. In lower extremities, strength judged to be 5/5 in all major muscle groups. He does complain of some right knee pain today and some stiffness in his right hand. ASSESSMENT: 1. Bilateral knee pain, status post bilateral knee replacement. 2. Complex medical management secondary to his pain. 3. Cervical radiculopathy. 4. Gastroesophageal complaints. 5. Myofascial pain. 6. Osteoarthritis. We reviewed the fact that opiate medications are being used to provide analgesia adequate to support activities of daily living, not attempting to achieve a specific pain score on the 0-10 Visual Analog Scale. The current opiate medications are providing sufficient analgesia to allow the patient to participate in activities of daily living. The patient is not exhibiting any aberrant behavior suggestive of drug diversion. The patient is not having any adverse reactions to medications. The patient is not suffering from daytime somnolence or mental acuity changes. The patient is managing opiate-induced constipation with appropriate dqkr-ryj-kklvkvl agents and dietary considerations. The patient was counseled on concern for caution with operating a motor vehicle while using opiate medications. A physical exam was performed and the patient's functional status was evaluated. All patients with back pain were advised against the bed rest greater than 4 days and were advised to return to normal activities. Pain score assessment was noted and the treatment plan was reviewed with the patient. All current medications, both prescribed and OTC were reviewed and reconciled on the electronic medical record. Tobacco screening was accomplished and smoking cessation was advised when indicated. BMI was noted and diet/exercise [facility] [address] [place] [address] PAIN MANAGEMENT CONSULTATION Name: PATRICK WU Room #: REG [facility] M..#: [id number] Admission: 07/18/18 ������������������ Attend Phys: Marlene Gustafson Discharge: ������������������ Date of : 53 Report #: [id number] modification was recommended for all patients following outside normal parameters. I reviewed with the patient today their responsibilities to safeguard prescription medications, reviewed their responsibility to utilize medications only as prescribed by the physician. They are to seek and receive pain medications only from 1 physician group ( [facility]). They are to use 1 pharmacy and keep the clinic informed if they change pharmacies. Their responsibilities include making followup visits in a timely fashion and to avoid abrupt discontinuation of medication usage. Their responsibilities further include bringing their medications (bottles from the pharmacy with residual pills) to the visit for possible confirmation of pill counts and the patient understands it is their responsibility to submit to random drug screens to ensure both that the medications prescribed are present, and that no other controlled substances are present. All prescriptions provided today were generated electronically. PLAN: 1. We discussed treatment options with the patient today. The patient tells me he does not need Celebrex or Elavil today. He has refills of those medications. He tells me he had stopped some of his medications because he found that he was overly sedated. He has continued to take his pain pills during that time, find them very helpful and recently restarted his Robaxin. He feels that the Robaxin has helped significantly with his cramps in his legs and hands and he takes 1 at bedtime and 1 in the morning and he is not having any further problems and would like a refill of that today. Scripts given today for for OxyContin 20 mg q.12, #60, oxycodone 5 mg q.i.d., #120 and Robaxin 750 mg b.i.d. #60 with 2 additional refills. 2. I did address the fact that some of the OxyContin strengths are being withdrawn from the market. The patient tells me he is still able to find his OxyContin. I explained to him that if he is unable to in the future, we will need to change him to a different medicine or continue to wean down off that medicine as we have been doing. 3. I did address the patient's weight with him. He weighs 341 today. In January visit, he weighed 317. I encouraged him to try to reduce his diet by eating less, especially fast foods, trying to eat healthier diet and to exercise with the weather improving outside, encouraged him to walk around the block and be more active. The patient tells me that he will try to do this. He did feel better on his knees when he had a lower weight. 4. The patient will be seen in 1 month's time, appointment made. 5. The patient seen in collaboration today with Dr. Boaz Bryant. ��������������������������������������������� <ELECTRONICALLY SIGNED> ���������������������������������������� By: Marlene Gustafson ��������������������������������������������� 07/19/18 1329 [id number] Marlene Gustafson /caryl
== END ==
LOC: PAIN 07:05
DX: Z47.1 Aftercare following joint replacement surgery (principal); M54.12 Radiculopathy, cervical region; K21.9 Gastro-esophageal reflux disease without esophagitis; M79.18 Myalgia, other site; Z96.653 Presence of artificial knee joint, bilateral; Z79.899 Other long term (current) drug therapy

== ENCOUNTER → 2018-08-15 | Outpatient (CLI) | payer OTHER ==
[~2018-08-15] VITALS: Ht 188 cm; Wt 154.2 kg
[2018-08-15 08:58] VITALS: BP 149/88
--- NOTE | 2018-08-15 09:21 | NUR ---
Pain Clinic Assessment: 1. History of Osteoarthritis: KNEES all joints History of Rheumatoid Arthritis: hands 2. Height: 6 ft. 2 in. 188.0 cm. Weight: 340.0 lb. oz. 154.224 kg. Patient's BMI: 43.6 3. Vital Signs: BP: 149/88 Pulse: 80 Resp: 20 Temp: 02 Sat: 95 ECG Mon: 4. Pain Intensity: 6 5. Fall Risk: Dizziness: N Needs help standing or walking: N Fallen in the last 3 months: N Fall risk comments: FELL ON ICE ON MONDAY 6. Patient on Blood Thinner: None 7. History of Hypertension: Y 8. Opioid Therapy greater than 6 weeks: Y Opiate Contract Signed: 11/04/15 9. Risk Assessment Tool Provided: LOW RISK 0/3 10. Functional Assessment Tool: 11. Recreational Drug Use: Never Drug Type: Tobacco Use: Never Smoker Tobacco Type: Amount or Packs/day: How Many Years: Alcohol Use: No Frequency: Quant:
--- NOTE | 2018-08-16 16:17 | HPC ---
[facility] [address] [place] [address] PAIN MANAGEMENT CONSULTATION Name: PATRICK WU Room #: REG [facility] Hernandez.#: [id number] Admission: 08/15/18 ������������������ Attend Phys: Marlene Gustafson Discharge: ������������������ Date of : 53 Report #: [id number] THIS REPORT FOR: //name// CC: Marlene Gustafson [facility] physician/PCP DATE OF SERVICE: 08/15/2018 CHIEF COMPLAINT: Low back pain, leg pain and neck pain. HISTORY OF PRESENT ILLNESS: This is a very pleasant 63-year-old gentleman who returns to the pain clinic today for refill of his medications. Today, he is telling us that his neck continues to bother him. It does not radiate down his arms, though he does have occasional numbness in his hand. He says he has had that for years, has not started just since his neck has been hurting. He tells me he has pain of a throbbing, constant pain that is a 6/10, worse with activity and walking and looking up and down with his neck. He also tells me today that he has been having some sexual dysfunction and he is going to see a supervisor [employer], though he does not have an appointment. He will be seeing somebody in the future regarding that issue and he is seeing an orthopedic for his neck in the near future as well. The patient would like a refill of his medication, does not complain of any constipation. He does take molm-alj-tgvqmhu medicine. He does not have any daytime sleepiness. ALLERGIES: No known drug allergies. MEDICATIONS: Celebrex 200 mg daily, amitriptyline 50-100 mg at bedtime, OxyContin 20 mg every 12 hours, oxycodone 5 mg q.i.d. p.r.n., methocarbamol 750 mg b.i.d. p.r.n., Advair daily, gabapentin 300 mg b.i.d., vitamin D weekly, vitamin B12 daily, Xopenex p.r.n., Singulair 10 mg daily and Nexium 40 mg daily. PQRS: 1. He has a history of osteoarthritis in his hands and bilateral knees, has rheumatoid arthritis also in his hands. 2. Height is 6 feet 2 inches, weight is 340, BMI is 43. Vital signs; 149/88, pulse is 80, respirations 20, oxygen sat is 95, pain score is 6/10. 3. Fall risk. Denies dizziness. Does not need help with walking or standing. Has not fallen in the last 3 months. The patient is not on any blood thinners, but does take medicine for hypertension. His opioid therapy is greater than 6 weeks; therefore, an opioid signed contract is on the chart. Risk assessment tool is low. Functional assessment is 45/70. Recreational drug use: He denies. He is not a smoker and does not drink alcohol. PHYSICAL EXAMINATION: [facility] [address] [place] [address] PAIN MANAGEMENT CONSULTATION Name: PATRICK WU Room #: REG [facility] Egan#: [id number] Admission: 08/15/18 ������������������ Attend Phys: Marlene Gustafson Discharge: ������������������ Date of : 53 Report #: [id number] GENERAL: This is a well-developed, well-nourished, very obese 63-year-old gentleman who appears his stated age. He is alert and orientated, loquacious in his speech, quite good historian. HEENT: Normocephalic, atraumatic. Extraocular eye muscles are intact. Mucous membranes are moist. NECK: Complains of tenderness with rotation of flexion and extension in his neck area, does not radiate down his arms. EXTREMITIES: Upper extremity strength judged to be 5/5 in all major muscle groups that is symmetrical in strength and tone. Lower extremities also judged to be 5/5. Complains of some knee pain bilaterally today. ASSESSMENT: 1. Bilateral knee pain, status post knee replacement. 2. Complex medical management secondary to his pain generators. 3. Cervical radiculopathy. 4. Gastroesophageal complaints. 5. Myofascial pain. 6. Osteoarthritis. We reviewed the fact that opiate medications are being used to provide analgesia adequate to support activities of daily living, not attempting to achieve a specific pain score on the 0-10 Visual Analog Scale. The current opiate medications are providing sufficient analgesia to allow the patient to participate in activities of daily living. The patient is not exhibiting any aberrant behavior suggestive of drug diversion. The patient is not having any adverse reactions to medications. The patient is not suffering from daytime somnolence or mental acuity changes. The patient is managing opiate-induced constipation with appropriate shce-kiz-wolvxpl agents and dietary considerations. The patient was counseled on concern for caution with operating a motor vehicle while using opiate medications. A physical exam was performed and the patient's functional status was evaluated. All patients with back pain were advised against the bed rest greater than 4 days and were advised to return to normal activities. Pain score assessment was noted and the treatment plan was reviewed with the patient. All current medications, both prescribed and OTC were reviewed and reconciled on the electronic medical record. Tobacco screening was accomplished and smoking cessation was advised when indicated. BMI was noted and diet/exercise modification was recommended for all patients following outside normal parameters. I reviewed with the patient today their responsibilities to safeguard prescription medications, reviewed their responsibility to utilize medications only as prescribed by the physician. They are to seek and receive pain medications only from 1 physician group ( [facility]). They are to use 1 pharmacy and keep the clinic informed if they change pharmacies. Their [facility] [address] [place] [address] PAIN MANAGEMENT CONSULTATION Name: PATRICK WU Room #: REG [facility] Ng.#: [id number] Admission: 08/15/18 ������������������ Attend Phys: Marlene Gustafson Discharge: ������������������ Date of : 53 Report #: [id number] responsibilities include making followup visits in a timely fashion and to avoid abrupt discontinuation of medication usage. Their responsibilities further include bringing their medications (bottles from the pharmacy with residual pills) to the visit for possible confirmation of pill counts and the patient understands it is their responsibility to submit to random drug screens to ensure both that the medications prescribed are present, and that no other controlled substances are present. All prescriptions provided today were generated electronically. PLAN: 1. We discussed treatment options with the patient today. The patient is doing quite well on his current regimen. His current morphine milliequivalent dose is 90. This falls within the CDC guidelines; therefore, we continue to see him on a monthly basis. Scripts given today for OxyContin 20 mg b.i.d. and oxycodone 5 mg q.i.d. Scripts also given for Celebrex 200 mg every day #30 with 2 additional refills. 2. The patient tells me that he is taking 50-100 mg of Elavil, not taking the full dose every night, so he does not need a script for that today and the Robaxin is very helpful in controlling his muscle spasms, but no script needed for that today. 3. We will check a drug screen on this patient today. His last one was 6 months ago which was negative for his meds, but he tells us that he was out prior to that collection. Today, he tells us he has taken all of his medications, so we expect to find all of them today. 4. Dr. Bryant did see the patient and collaborate with care. Appointment made for 1 month. ��������������������������������������������� <ELECTRONICALLY SIGNED> ���������������������������������������� By: Marlene Gustafson ��������������������������������������������� 08/16/18 1617 [id number] Marlene Gustafson /nt
== END ==
LOC: PAIN 06:43
DX: M25.561 Pain in right knee (principal); M25.562 Pain in left knee; M19.90 Unspecified osteoarthritis, unspecified site; R51 Headache; M54.12 Radiculopathy, cervical region; Z79.899 Other long term (current) drug therapy

== ENCOUNTER → 2018-09-26 | Outpatient (CLI) | payer OTHER ==
[~2018-09-26] VITALS: Ht 188 cm; Wt 155.0 kg
[2018-09-26 08:57] VITALS: BP 135/71
--- NOTE | 2018-09-26 09:15 | NUR ---
Pain Clinic Assessment: 1. History of Osteoarthritis: KNEES all joints History of Rheumatoid Arthritis: hands 2. Height: 6 ft. 2 in. 188.0 cm. Weight: 341.8 lb. oz. 155.040 kg. Patient's BMI: 43.9 3. Vital Signs: BP: 135/71 Pulse: 78 Resp: 22 Temp: 02 Sat: 96 ECG Mon: 4. Pain Intensity: 10 5. Fall Risk: Dizziness: N Needs help standing or walking: N Fallen in the last 3 months: N Fall risk comments: FELL ON ICE ON MONDAY 6. Patient on Blood Thinner: None 7. History of Hypertension: Y 8. Opioid Therapy greater than 6 weeks: Y Opiate Contract Signed: 11/04/15 9. Risk Assessment Tool Provided: LOW RISK 0/3 10. Functional Assessment Tool: 11. Recreational Drug Use: Never Drug Type: Tobacco Use: Never Smoker Tobacco Type: Amount or Packs/day: How Many Years: Alcohol Use: No Frequency: Quant:
--- NOTE | 2018-09-27 07:18 | HPC ---
[facility] [place] [place] [address] PAIN MANAGEMENT CONSULTATION Name: PATRICK WU Room #: REG [facility] Julisa#: [id number] Admission: 09/26/18 ������������������ Attend Phys: Marlene Gustafson Discharge: ������������������ Date of : 53 Report #: [id number] THIS REPORT FOR: //name// CC: Marlene Gustafson [facility] physician/PCP DATE OF SERVICE: 09/26/2018 CHIEF COMPLAINT: Low back pain, bilateral leg pain and neck pain. HISTORY OF PRESENT ILLNESS: This is a 63-year-old gentleman who returns to the pain clinic today for refill of his medications. He tells me that he feels like his neck and back are getting worse. He feels like he has constant pain. He tells me it seems like it has been worse since we had decreased his medications in March. He has been seen orthopaedic at [facility] and he recently requested to see a different orthopedic that specializes in the backs to see if there have any suggestions regarding surgery or other options for him. He tells me he has also [facility] and we will probably have an MRI ordered. The patient tells me his pain is worse with any activity and walking. He feels that he is not able to do as much activity since his medications were decreased last March. He tells me that the Robaxin is very helpful with his muscle spasms in his legs and his hands, while he is taking that medication he tells me he does not experience them like he had in the past, though he is going to ask his primary care doctor to run some lab work to see what might be causing all of his muscle spasms. The patient denies any constipation or daytime sleepiness. He tells me that he did quit his gabapentin recently. He thought maybe that might be causing some of his sleepiness and he has not noticed any change in any of his radicular symptoms since stopping the gabapentin. ALLERGIES: No known drug allergies. CURRENT LIST OF MEDICATION: Oxycodone 5 mg q.i.d., OxyContin 20 mg b.i.d., Celebrex 200 mg daily, amitriptyline p.r.n., Robaxin 750 mg b.i.d., Advair, vitamin D, vitamin B12, Singulair and Nexium. PQRS: 1. He does have a history of osteoarthritis in his hands and knees. He also has rheumatoid arthritis in his hands. 2. Height is 6 feet 2 inches, weight is 341. BMI is 43. Vital signs 135/71, pulse is 78, respirations 22, oxygen sat is 96. Pain score is 10/10 3. Fall risk. Denies dizziness. He does not need help with walking or standing and has not fallen in the last 3 months. The patient is not on any blood thinners. He does take medicine for hypertension. 4. He has been on opiate therapy greater than 6 weeks, therefore, an opioid [address] [address] PAIN MANAGEMENT CONSULTATION Name: JAZMINPATRICK NETTLES Room #: REG [facility] Egan#: [id number] Admission: 09/26/18 ������������������ Attend Phys: Marlene Gustafson Discharge: ������������������ Date of : 53 Report #: [id number] signed contract is on the chart. His risk assessment tool is low. Functional assessment is 45/70. Recreational drug use, he denies. He is not a smoker and does not drink alcohol. We did check the prescription monitoring system. The patient is filling appropriately for his medications. He does have a recent drug screen on the chart that is appropriate for his medications. He tells me he safeguards his meds at all times. PHYSICAL EXAMINATION: GENERAL: This is a well-developed, well-nourished, very obese 63-year-old gentleman who appears his stated age. He is alert and oriented, loquacious in his speech and he is a good historian. HEENT: Normocephalic, atraumatic. Extraocular eye muscles are intact. Mucous membranes are moist. NECK: Tenderness with rotation of flexion and extension of his neck. It does not radiate into his arms. EXTREMITIES: Upper extremity strength judged to be 5/5 in all major muscle groups. Lower extremities judged to be 5/5. Complains of lumbar tenderness and occasional pain in his thoracic area that radiates into his right rib cage. Pain is elicited with flexion of his back. ASSESSMENT: 1. Bilateral knee pain, status post knee replacement 2. lumbar back pain 3. cervical radiculopathy 4.complex medical management secondary to pain generators 5.myofascial pain 6.osteoarthritis 7.morbid obesity. We reviewed the fact that opiate medications are being used to provide analgesia adequate to support activities of daily living, not attempting to achieve a specific pain score on the 0-10 Visual Analog Scale. The current opiate medications are providing sufficient analgesia to allow the patient to participate in activities of daily living. The patient is not exhibiting any aberrant behavior suggestive of drug diversion. The patient is not having any adverse reactions to medications. The patient is not suffering from daytime somnolence or mental acuity changes. The patient is managing opiate-induced constipation with appropriate jdlc-zqu-efdseqz agents and dietary considerations. The patient was counseled on concern for caution with operating a motor vehicle while using opiate medications. A physical exam was performed and the patient's functional status was evaluated. All patients with back pain were advised against the bed rest greater than 4 [facility] [address] [place] [address] PAIN MANAGEMENT CONSULTATION Name: PATRICK WU Room #: REG [facility]..#: [id number] Admission: 09/26/18 ������������������ Attend Phys: Marlene Gustafson Discharge: ������������������ Date of : 53 Report #: [id number] days and were advised to return to normal activities. Pain score assessment was noted and the treatment plan was reviewed with the patient. All current medications, both prescribed and OTC were reviewed and reconciled on the electronic medical record. Tobacco screening was accomplished and smoking cessation was advised when indicated. BMI was noted and diet/exercise modification was recommended for all patients following outside normal parameters. I reviewed with the patient today their responsibilities to safeguard prescription medications, reviewed their responsibility to utilize medications only as prescribed by the physician. They are to seek and receive pain medications only from 1 physician group ( [facility]). They are to use 1 pharmacy and keep the clinic informed if they change pharmacies. Their responsibilities include making followup visits in a timely fashion and to avoid abrupt discontinuation of medication usage. Their responsibilities further include bringing their medications (bottles from the pharmacy with residual pills) to the visit for possible confirmation of pill counts and the patient understands it is their responsibility to submit to random drug screens to ensure both that the medications prescribed are present, and that no other controlled substances are present. All prescriptions provided today were generated electronically. PLAN: 1. We discussed treatment options with the patient today. Refills of his OxyContin 20 mg b.i.d. #60 and oxycodone 5 mg 4 times a day, #120. This places the patient at 90 morphine milligram equivalents per day at the top of the CDC guidelines. We have worked hard to decrease him to this level though he complains of significant pain today telling me that he is not doing well at this level of medication. 2. We did discuss possible need for new x-rays to see if something else is going on with his back. He is [facility] this [facility]. I encouraged him to have the x-ray sent here, so Dr. Bryant could evaluate if he needs an epidural or other forms of injections that may be beneficial. 3. We did discuss different injection techniques of the epidural or trigger point and the difference between the two of them. 4. The patient is seen in collaboration today with Dr. Jarrett Manriquez who did see the patient as well. Appointment made for 1 month. ��������������������������������������������� <ELECTRONICALLY SIGNED> ���������������������������������������� By: Marlene Gustafson ��������������������������������������������� 09/27/18 0718 [id number] Marlene Gustafson /cayrl
== END ==
LOC: PAIN 06:46
DX: M54.12 Radiculopathy, cervical region (principal); M19.90 Unspecified osteoarthritis, unspecified site; M25.561 Pain in right knee; M25.562 Pain in left knee; M54.5 Low back pain; M79.10 Myalgia, unspecified site; E66.01 Morbid (severe) obesity due to excess calories; Z79.899 Other long term (current) drug therapy; Z68.41 Body mass index [BMI] 40.0-44.9, adult

== ENCOUNTER → 2018-10-24 | Outpatient (CLI) | payer OTHER ==
[~2018-10-24] VITALS: Ht 188 cm; Wt 155.7 kg
[~2018-10-24] MED LIST changes: +ROBAXIN 750 MG750 MG PO
[2018-10-24 09:55] VITALS: BP 143/91
--- NOTE | 2018-10-24 10:09 | NUR ---
Pain Clinic Assessment: 1. History of Osteoarthritis: KNEES all joints History of Rheumatoid Arthritis: hands 2. Height: 6 ft. 2 in. 188.0 cm. Weight: 343.2 lb. oz. 155.675 kg. Patient's BMI: 44.0 3. Vital Signs: BP: 143/91 Pulse: 75 Resp: 20 Temp: 02 Sat: 97 ECG Mon: 4. Pain Intensity: 8 5. Fall Risk: Dizziness: N Needs help standing or walking: N Fallen in the last 3 months: Y Fall risk comments: FELL ON ICE ON MONDAY 6. Patient on Blood Thinner: None 7. History of Hypertension: Y 8. Opioid Therapy greater than 6 weeks: Y Opiate Contract Signed: 11/04/15 9. Risk Assessment Tool Provided: LOW RISK 0/3 10. Functional Assessment Tool: 11. Recreational Drug Use: Never Drug Type: Tobacco Use: Never Smoker Tobacco Type: Amount or Packs/day: How Many Years: Alcohol Use: No Frequency: Quant:
--- NOTE | 2018-10-24 15:12 | HPC ---
[facility] [place] [address] PAIN MANAGEMENT CONSULTATION Name: PATRICK WU [facility] #: [id number] Admission: 10/24/18 ������������������ Attend Phys: Marlene Gustafson Discharge: ������������������ Date of : 53 Report #: [id number] THIS REPORT FOR: //name// CC: Marlene Gustafson [facility] physician/PCP Kathy Bryant DATE OF SERVICE: 10/24/2018 CHIEF COMPLAINT: Low back pain, bilateral leg pain and cervical radiculopathy. HISTORY OF PRESENT ILLNESS: This is a 63-year-old gentleman who returns to the pain clinic today for refill of his medications. He tells me that his pain score is an 8/10, mostly located in his lumbar spine today that does radiate into his legs, but does have ongoing neck and shoulder pain as well. He tells me his pain is worse with activity and walking, better with his medications. He did recently see his doctor at the [facility] and had new x-rays done of his lumbar spine, which did not show any significant changes, though he tells me he has worsening pain in his lower back. The patient denies any problems with constipation as long as he takes his Colace and MiraLax on a regular basis and feels that the medications are helpful in controlling his pain. ALLERGIES: No known drug allergies. CURRENT LIST OF MEDICATIONS: OxyContin 20 mg b.i.d., oxycodone 5 mg q.i.d. p.r.n., Robaxin 750 mg b.i.d., Celebrex daily, amitriptyline 100 mg at bedtime, Advair, gabapentin 300 mg b.i.d., vitamin D, vitamin B12, Singulair and Nexium. PQRS REVIEW: 1. The patient has a history of osteoarthritis in his hands and knees. Has rheumatoid arthritis in his hands. 2. Height is 6 feet 2 inches, weight is 343 and BMI is 44. 3. Vital signs, 143/91, pulse of 75, respirations 20 and oxygen sat is 97. 4. Pain score is 8/10. 5. Denies dizziness. Does not need help walking or standing, has not fallen in the last 3 months. The patient is not on any blood thinners. He does take medicine for hypertension. 6. Opioid therapy was greater than 6 weeks; therefore, an opioid signed contract is on the chart. His risk assessment tool is low. Functional assessment is 45/70. 7. Recreational drug use, he denies. He is not a smoker and does not drink alcohol. According to the prescription monitoring system, the patient is due to be filled next week for his medications. He has a recent drug screen on the chart that is appropriate for his medications. [address] [address] PAIN MANAGEMENT CONSULTATION Name: PATRICK WU Room #: REG CLI Julisa#: [id number] Admission: 10/24/18 ������������������ Attend Phys: Marlene Gustafson Discharge: ������������������ Date of : 53 Report #: [id number] PHYSICAL EXAMINATION: GENERAL: This is a well-developed, well-nourished, obese 63-year-old gentleman who appears his stated age. He is very loquacious in his speech. He is alert and oriented. HEENT: Normocephalic, atraumatic. Extraocular eye muscles are intact. Mucous membranes are moist. NECK: He has pain with rotation, flexion and extension of his neck with tenderness in various muscle groups. EXTREMITIES: Upper extremity strength judged to be 5/5 in all major muscle groups as well as the lower extremity strength is symmetrical in muscle strength and tone. There is tenderness across his lumbar spine that radiates into his upper buttocks and hip region today. No radiation into his legs presently. He walks with an antalgic gait. ASSESSMENT: 1. Bilateral knee pain, status post knee replacement. 2. Lumbar radiculopathy. 3. Cervical radiculopathy. 4. Myofascial pain. 5. Osteoarthritis. 6. Morbid obesity. 7. Complex medication management secondary to multiple pain generators. We reviewed the fact that opiate medications are being used to provide analgesia adequate to support activities of daily living, not attempting to achieve a specific pain score on the 0-10 Visual Analog Scale. The current opiate medications are providing sufficient analgesia to allow the patient to participate in activities of daily living. The patient is not exhibiting any aberrant behavior suggestive of drug diversion. The patient is not having any adverse reactions to medications. The patient is not suffering from daytime somnolence or mental acuity changes. The patient is managing opiate-induced constipation with appropriate zfxd-elx-oapmknk agents and dietary considerations. The patient was counseled on concern for caution with operating a motor vehicle while using opiate medications. A physical exam was performed and the patient's functional status was evaluated. All patients with back pain were advised against the bed rest greater than 4 days and were advised to return to normal activities. Pain score assessment was noted and the treatment plan was reviewed with the patient. All current medications, both prescribed and OTC were reviewed and reconciled on the electronic medical record. Tobacco screening was accomplished and smoking cessation was advised when indicated. BMI was noted and diet/exercise modification was recommended for all patients following outside normal parameters. [address] [address] PAIN MANAGEMENT CONSULTATION Name: PATRICK WU Room #: REG [facility]#: [id number] Admission: 10/24/18 ������������������ Attend Phys: Marlene Gustafson Discharge: ������������������ Date of : 53 Report #: [id number] I reviewed with the patient today their responsibilities to safeguard prescription medications, reviewed their responsibility to utilize medications only as prescribed by the physician. They are to seek and receive pain medications only from 1 physician group ( [facility]). They are to use 1 pharmacy and keep the clinic informed if they change pharmacies. Their responsibilities include making followup visits in a timely fashion and to avoid abrupt discontinuation of medication usage. Their responsibilities further include bringing their medications (bottles from the pharmacy with residual pills) to the visit for possible confirmation of pill counts and the patient understands it is their responsibility to submit to random drug screens to ensure both that the medications prescribed are present, and that no other controlled substances are present. All prescriptions provided today were generated electronically. PLAN: 1. We discussed treatment options with the patient today. He did bring lab work and x-ray reports from his primary care doctor that we reviewed with him. It does show no significant changes in his lumbar spine despite his increase in pain. 2. Prescriptions given today for OxyContin 20 mg b.i.d., #60 and oxycodone 5 mg, #120 q.i.d. The patient's diagnoses codes and diagnoses were written on these prescriptions for Medicaid. His MME is 90 according to the CDC guidelines. 3. Prescriptions was also given for 3 months of Robaxin 750 mg, #60, 2 refills; amitriptyline 100 mg, #30 with 2 refills and Celebrex 200 mg, #30 with [address] Boaz Bryant did come and see the patient and collaborated care as well today. The patient will return in one month. ��������������������������������������������� <ELECTRONICALLY SIGNED> ���������������������������������������� By: Marlene Gustafson ��������������������������������������������� 10/24/18 1512 [id number] [id number] Marlene Gustafson /nt
== END ==
LOC: PAIN 09:28
DX: M54.12 Radiculopathy, cervical region (principal); M54.16 Radiculopathy, lumbar region; M25.561 Pain in right knee; M25.562 Pain in left knee; M19.90 Unspecified osteoarthritis, unspecified site; E66.9 Obesity, unspecified; M79.18 Myalgia, other site; M79.604 Pain in right leg; M79.605 Pain in left leg; Z79.891 Long term (current) use of opiate analgesic

== ENCOUNTER 2018-11-03 22:30 | Emergency (ER) | payer OTHER ==
[~2018-11-03] VITALS: Ht 190.5 cm; Wt 146.1 kg
[2018-11-03 23:27] LABS: BASOPHILS 0.7 % (0.0-2.0); EOSINOPHILS 3.6 % (0.0-3.0); HEMATOCRIT 39.7 % (42.0-52.0); HEMOGLOBIN 13.4 gm/dL (14.0-18.0); LYMPHOCYTES 36.4 % (24.0-44.0); MCH 29.6 pg (26.0-34.0); MCHC 33.9 g/dL (28.0-37.0); MCV 87.2 fL (80.0-100.0); MONOCYTES 11.5 % (1.0-8.0); PLATELET COUNT 189 thou/uL (150-400); POLYS 47.8 % (36.0-66.0); RBC 4.55 mil/uL (4.50-6.00); RDW 13.7 % (10.5-14.5); WBC 6.4 thou/uL (4.0-11.0)
[2018-11-03 23:35] LABS: ANION GAP 7 mmol/L (7-16); BUN 18 mg/dL (7-18); CALCIUM 8.8 mg/dL (8.5-10.1); CHLORIDE 108 mmol/L (98-107); CO2 26 mmol/L (21-32); GLUCOSE 138 mg/dL (74-106); SODIUM 141 mmol/L (136-145)
[2018-11-03 23:43] LABS: TROPONIN-I <0.06 ng/mL (<0.06)
[2018-11-04 00:06] LABS: URINE BILIRUBIN NEGATIVE (Negative); URINE BLOOD NEGATIVE (Negative); URINE CLARITY CLEAR; URINE COLOR YELLOW; URINE GLUCOSE-RANDOM* NEGATIVE (Negative); URINE KETONES NEGATIVE (Negative); URINE LEUKOCYTES-REFLEX NEGATIVE (Negative); URINE NITRITE-REFLEX NEGATIVE (Negative); URINE PROTEIN (DIPSTICK) NEGATIVE (Negative); URINE SPECIFIC GRAVITY >= 1.030 (1.005-1.035); URINE UROBILINOGEN 0.2 E.U./dl (0.2-1.0)
[2018-11-04 02:21] VITALS: BP 103/73
--- NOTE | 2018-11-05 09:05 | EKG ---
[place] [address] [facility] 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 : 1955 Requested By: Cosmo Mauricio Order Number: [id number] MD: Dar Pineda Measurements Intervals [place] Rate: 70 P: 25 W[place]: 169 QRS: 22 QRSD: 102 T: 45 QT: 399 QTc: 431 Interpretive Statements Sinus rhythm Normal tracing Compared to ECG 12/30/2016 13:17:15 Ventricular premature complex(es) no longer present ST (T wave) deviation no longer present Electronically Signed On 11-05-2018 9:05:09 CDT by Dar Pineda [email or web address] ��������������������������������������������� <ELECTRONICALLY SIGNED> ���������������������������������������� By: Dar Pineda MD, [facility] ��������������������������������������������� 11/05/18904 2249 2249 Dar Pineda MD, [facility] /EPI
== END 2018-11-04 02:30 | disposition home or self-care (01) ==
LOC: ER 22:30
PROVIDERS: Emergency Medicine
DX: N44.2 Benign cyst of testis (principal); R07.9 Chest pain, unspecified; G89.29 Other chronic pain; J44.9 Chronic obstructive pulmonary disease, unspecified; I25.2 Old myocardial infarction; K21.9 Gastro-esophageal reflux disease without esophagitis; M06.9 Rheumatoid arthritis, unspecified; Z90.49 Acquired absence of other specified parts of digestive tract; Z79.899 Other long term (current) drug therapy

== ENCOUNTER → 2018-11-28 | Outpatient (CLI) | payer OTHER ==
[~2018-11-28] VITALS: Ht 188 cm; Wt 159.2 kg
--- NOTE | ~2018-11-28 | HPC ---
[facility] [address] [address] PAIN MANAGEMENT CONSULTATION Name: PATRICK WU [facility] #: [facility] [id number] Admission: 11/28/18 Attend Phys: Marlene Gustafson Discharge: Date of : 53 Report #: [id number] THIS REPORT FOR: //name// CC: Marlene Gustafson [facility] physician/PCP DATE OF SERVICE: 11/28/2018 CHIEF COMPLAINT: Low back pain, bilateral leg pain, cervical radiculopathy and testicular pain. HISTORY OF PRESENT ILLNESS: The patient returns to the pain clinic today for a refill of his medications, telling me that his pain score is a 9/10. It is mostly located in his lumbar spine that radiates into his legs, but he is also having neck pain as well as right testicular pain. He recently had gone to the Emergency Room here at [place] and had an ultrasound done that did show that he had a right testicular cyst measuring 1.3 cm; therefore, he made an appointment with a physician at [facility]. He is scheduled to have another ultrasound there in a few weeks as well as an entire spine x-ray on 12/13/2018. The patient tells me that his pain has slowly been getting worse. He has been not as active as he had been in the past. He has been gaining weight, which makes his pain worse also. Usually activity and walking exacerbate his pain and his medication is usually very beneficial in controlling his pain, but lately it has not since his pain has increased in all of these areas. He denies any problem with constipation or daytime sleepiness. ALLERGIES: No known drug allergies. CURRENT LIST OF MEDICATIONS: OxyContin 20 mg b.i.d., oxycodone 5 mg 4 times a day, Robaxin 750 mg b.i.d., Celebrex 200 mg daily, Elavil 100 mg daily, Advair daily, gabapentin 300 mg b.i.d., vitamin D, vitamin B12, Xopenex as needed, Singulair daily, and Nexium daily. PQRS: 1. He has a history of arthritis in his hands and knees as well as his lumbar spine. Rheumatoid arthritis in his hands. 2. Height is 6 feet 2 inches, weight is 351. BMI is 45. This is increase in weight from 343 one month ago. 3. Vital signs: Blood pressure 149/89, pulse is 83, respirations 14, oxygen sat is 94. 4. Pain score is 9/10. 5. Denies dizziness, does not need any help walking or standing, has not fallen in the last 3 months. 6. He is not on any blood thinners and does take medicine for hypertension. 7. Opiate therapy is greater than 6 weeks; therefore, an opiate signed contract [address] [address] PAIN MANAGEMENT CONSULTATION Name: PATRICK WU Room #: REG CLJolene Egan#: [id number] Admission: 11/28/18 Attend Phys: Marlene Gustafson Discharge: Date of : 53 Report #: [id number] is on the chart. 8. His risk assessment is low. Functional assessment is 45/70. 9. Recreational drug use, he denies. He is not a smoker and does not drink alcohol. According to the prescription monitoring system, the patient is due for his medication in about a week. He has a recent drug screen on the chart that is appropriate for his medications. We will need to do a prior authorization for his medications, [place] Medicaid is requiring a monthly prior authorization for his OxyContin that he has been on very intermediate frame tender. We have actually reduced his medications over the past few months and he is doing quite well except for new flare that he is having. The patient does have cervical and lumbar radiculopathy that we are treating with these medications. PHYSICAL EXAMINATION: GENERAL: This is a well-developed, well-nourished, well-hydrated exogenously obese 63-year-old gentleman who appears his stated age, placing his current pain score at 9/10 today, very loquacious in his speech. He is alert and orientated. HEENT: Normocephalic, atraumatic. Extraocular eye muscles are intact. Mucous membranes are moist. NECK: He has pain with rotation and flexion and extension in his cervical region and has tenderness in his muscles in his upper shoulder area as well. EXTREMITIES: Upper extremity strength judged to be 5/5 in all major muscle groups. Lower extremities judged to be 5/5 as well. He has tenderness in his lumbar spine that radiates into his upper buttock into his bilateral hips. It does radiate into his bilateral legs today, telling me it is numbness and tingly as well as pain. He does walk with an antalgic gait. GENITOURINARY: The patient is complaining of right testicular pain that is radiating into his right groin and right thigh. He tells me that it is slightly swollen. I did not examine this today. ASSESSMENT: 1. Bilateral knee pain, status post knee replacement. 2. Lumbar radiculopathy. 3. Cervical radiculopathy. 4. Testicular pain. 5. Myofascial pain. 6. Osteoarthritis. 7. Morbid obesity. 8. Complex medical management under terms of written opioid agreement with multiple pain generators. We reviewed the fact that opiate medications are being used to provide analgesia adequate to support activities of daily living, not attempting to achieve a specific pain score on the 0-10 Visual Analog Scale. The current opiate medications are providing sufficient analgesia to allow the patient to [facility] [address] [place] [address] PAIN MANAGEMENT CONSULTATION Name: PATRICK WU Room #: REG [facility]#: [id number] Admission: 11/28/18 Attend Phys: Marlene Gustafson Discharge: Date of : 53 Report #: [id number] participate in activities of daily living. The patient is not exhibiting any aberrant behavior suggestive of drug diversion. The patient is not having any adverse reactions to medications. The patient is not suffering from daytime somnolence or mental acuity changes. The patient is managing opiate-induced constipation with appropriate kapn-gpk-fiqweca agents and dietary considerations. The patient was counseled on concern for caution with operating a motor vehicle while using opiate medications. A physical exam was performed and the patient's functional status was evaluated. All patients with back pain were advised against the bed rest greater than 4 days and were advised to return to normal activities. Pain score assessment was noted and the treatment plan was reviewed with the patient. All current medications, both prescribed and OTC were reviewed and reconciled on the electronic medical record. Tobacco screening was accomplished and smoking cessation was advised when indicated. BMI was noted and diet/exercise modification was recommended for all patients following outside normal parameters. I reviewed with the patient today their responsibilities to safeguard prescription medications, reviewed their responsibility to utilize medications only as prescribed by the physician. They are to seek and receive pain medications only from 1 physician group ( [facility]). They are to use 1 pharmacy and keep the clinic informed if they change pharmacies. Their responsibilities include making followup visits in a timely fashion and to avoid abrupt discontinuation of medication usage. Their responsibilities further include bringing their medications (bottles from the pharmacy with residual pills) to the visit for possible confirmation of pill counts and the patient understands it is their responsibility to submit to random drug screens to ensure both that the medications prescribed are present, and that no other controlled substances are present. All prescriptions provided today were generated electronically. RADIOLOGY IMPRESSION: Ultrasound testicular, scrotal, the findings are no evidence of solid testicular mass for testicular torsion. A 1.3 cm right testicular cyst is present. PLAN: 1. We discussed treatment options with the patient today. We will continue the patient on his current OxyContin 20 mg b.i.d. scripts of #60 and his oxycodone 5 mg #120 to release today, so he may take them to the pharmacy, so we can start the prior authorization process. The patient takes this for his cervical and lumbar radiculopathy as well as his severe osteoarthritis. The patient does have Narcan in the home. He has never had a problem with overdose, but this is per his insurance request that he has this at his house. The patient does keep his medicines locked and safe guarded all times as well. 2. The patient will undergo an entire spine x-ray series on 12/13/[address] [address] PAIN MANAGEMENT CONSULTATION Name: JAZMINPATRICK NETTLES Room #: REG ROSELYN Egan#: [id number] Admission: 11/28/18 Attend Phys: Marlene Gustafson Discharge: Date of : 53 Report #: [id number] as ultrasound of his right testicle and he will have those sent to Dr. Bryant for evaluation. Dr. Bryant will see the patient in 1 month's time. He will examine him at that time for a possible lumbar epidural steroid injection to see if this is beneficial in helping the patient with his pain that has recently increased. 3. The patient verbalizes understanding. Appointment made. Care given under the collaboration with Dr. Boaz Bryant today. By: [id number] Marlene Gustafson /caryl
[2018-11-28 10:08] VITALS: BP 149/89
--- NOTE | 2018-11-28 10:21 | NUR ---
Pain Clinic Assessment: 1. History of Osteoarthritis: KNEES all joints History of Rheumatoid Arthritis: hands 2. Height: 6 ft. 2 in. 188.0 cm. Weight: 351.0 lb. oz. 159.213 kg. Patient's BMI: 45.0 3. Vital Signs: BP: 149/89 Pulse: 83 Resp: 14 Temp: 02 Sat: 93 ECG Mon: 4. Pain Intensity: 9 5. Fall Risk: Dizziness: N Needs help standing or walking: N Fallen in the last 3 months: N Fall risk comments: FELL ON ICE ON MONDAY 6. Patient on Blood Thinner: None 7. History of Hypertension: Y 8. Opioid Therapy greater than 6 weeks: Y Opiate Contract Signed: 11/04/15 9. Risk Assessment Tool Provided: LOW RISK 0/3 10. Functional Assessment Tool: 11. Recreational Drug Use: Never Drug Type: Tobacco Use: Never Smoker Tobacco Type: Amount or Packs/day: How Many Years: Alcohol Use: No Frequency: Quant:
== END ==
LOC: PAIN 06:44
DX: M17.0 Bilateral primary osteoarthritis of knee (principal); E66.01 Morbid (severe) obesity due to excess calories; M54.5 Low back pain; Z79.891 Long term (current) use of opiate analgesic

== ENCOUNTER 2018-12-18 09:32 | Emergency (ER) | payer OTHER ==
[~2018-12-18] VITALS: Ht 188 cm; Wt 152.9 kg
[2018-12-18 10:18] LABS: ABSOLUTE NEUTROPHILS 13.7 thou/uL (1.4-8.2); BASOPHILS 0.2 % (0.0-2.0); EOSINOPHILS 0.1 % (0.0-3.0); HEMATOCRIT 42.6 % (42.0-52.0); HEMOGLOBIN 14.1 gm/dL (14.0-18.0); LYMPHOCYTES 5.2 % (24.0-44.0); MCH 29.1 pg (26.0-34.0); MCHC 33.1 g/dL (28.0-37.0); MCV 87.9 fL (80.0-100.0); MONOCYTES 9.7 % (1.0-8.0); PLATELET COUNT 177 thou/uL (150-400); POLYS 84.8 % (36.0-66.0); RBC 4.85 mil/uL (4.50-6.00); RDW 13.3 % (10.5-14.5); WBC 16.2 thou/uL (4.0-11.0)
[2018-12-18 10:27] LABS: ANION GAP 7 mmol/L (7-16); BUN 12 mg/dL (7-18); CALCIUM 9.2 mg/dL (8.5-10.1); CHLORIDE 97 mmol/L (98-107); CO2 26 mmol/L (21-32); GLUCOSE 171 mg/dL (74-106); POTASSIUM 3.9 mmol/L (3.5-5.1); SODIUM 130 mmol/L (136-145)
[2018-12-18 10:37] LABS: ALBUMIN 3.1 g/dL (3.4-5.0); MAGNESIUM 1.7 mg/dL (1.8-2.4); SGOT 13 U/L (15-37); SGPT 16 U/L (30-65); TOTAL BILIRUBIN 2.8 mg/dL (<0.1-1.0); TOTAL PROTEIN 7.7 g/dL (6.4-8.2); TROPONIN-I <0.06 ng/mL (<0.06)
[2018-12-18 11:25] LABS: URINE BILIRUBIN NEGATIVE (Negative); URINE BLOOD NEGATIVE (Negative); URINE CLARITY CLEAR; URINE COLOR YELLOW; URINE GLUCOSE-RANDOM* NEGATIVE (Negative); URINE KETONES NEGATIVE (Negative); URINE LEUKOCYTES-REFLEX NEGATIVE (Negative); URINE NITRITE-REFLEX NEGATIVE (Negative); URINE PROTEIN (DIPSTICK) TRACE (Negative)
[2018-12-18 12:38] VITALS: BP 151/76
--- NOTE | 2018-12-19 07:58 | EKG ---
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1955 Requested By: Jeremy Mccoy Order Number: [id number] MD: Dar Pineda Measurements Intervals [place] Rate: 99 P: 3 NM: 149 QRS: -75 QRSD: 99 T: 53 QT: 329 QTc: 423 Interpretive Statements Sinus rhythm LAD, consider left anterior fascicular block Compared to ECG 11/03/2018 22:49:36 No significant changes Electronically Signed On 12-19-2018 7:58:08 CDT by Dar Pineda [email or web address] ��������������������������������������������� <ELECTRONICALLY SIGNED> ���������������������������������������� By: Dar Pineda MD, [facility] ��������������������������������������������� 12/19/18 0758 2 2 Dar Pineda MD, FAC /EPI
[2018-12-19] MEDS ORDERED: AMITRIPTYLINE100 MG PO (15:26)
[2018-12-19] MEDS ORDERED: CELEBREX 200 M200 M1 PO (15:27)
[2018-12-19] MEDS ORDERED: ROBAXIN 750 MG750 MG PO (15:27)
== END 2018-12-18 12:39 | disposition home or self-care (01) ==
LOC: ER 09:32
PROVIDERS: Emergency Medicine
DX: R13.10 Dysphagia, unspecified (principal); M54.5 Low back pain; M54.6 Pain in thoracic spine; M54.2 Cervicalgia; K21.9 Gastro-esophageal reflux disease without esophagitis; J44.9 Chronic obstructive pulmonary disease, unspecified; M06.9 Rheumatoid arthritis, unspecified; E66.9 Obesity, unspecified; Z68.41 Body mass index [BMI] 40.0-44.9, adult; Z90.49 Acquired absence of other specified parts of digestive tract; Z77.22 Contact with and (suspected) exposure to environmental tobacco smoke (acute) (chronic)

== ENCOUNTER → 2018-12-19 | Outpatient (CLI) | payer OTHER ==
--- NOTE | ~2018-12-19 | HPC ---
[facility] [address] [address] PAIN MANAGEMENT CONSULTATION Name: PATRICK WU Room #: REG ROSELYN Julisa#: [id number] Admission: 12/19/18 ������������������ Attend Phys: Kathy Bryant MD Discharge: ������������������ Date of : 53 Report #: [id number] THIS REPORT FOR: //name// CC: CARLYLE physician/PCP Kathy Bryant DATE OF SERVICE: 12/19/2018 CHIEF COMPLAINT: Pain in the upper back on the left side as well as the mid back on the right side. HISTORY: The patient is a 63-year-old gentleman who has been followed in the Pain Clinic because of cervical radiculopathy as well as some pain in the lower portion of his back because of lumbar radiculopathy. He also has chronic pain involving his knees. He has returned today with increased pain. He states that the pain is quite problematic. It feels as though it is all globally involving his upper back area. He has had some episodes in the past, where he has had pain that radiates from his shoulder down into the left arm and forearm. He has had problems where he has had pain and discomfort radiating down the right shoulder and into the forearms. Today, the pain feels like it is more focused. This is in the area of his mid back. He has some limited movement of his neck because of increased pain and discomfort. He has been told that he has significant arthritis in his neck and he feels that arthritic pain may be contributing significantly to the pain and discomfort he is experiencing. He has returned to the Pain Clinic today with the hopes of undergoing treatment for his pain and discomfort. ALLERGIES: No known drug allergies. CURRENT MEDICATIONS: OxyContin 20 mg p.o. b.i.d., oxycodone 5 mg q.i.d., Robaxin 750 mg b.i.d., Celebrex daily, amitriptyline 100 mg at bedtime, Advair, gabapentin 300 mg b.i.d., vitamin D, vitamin B12, Singulair, and Nexium. PAIN CLINIC ASSESSMENT/PQRS: 1. The patient has a history of osteoarthritis involving his hands and his knees. He has had knee replacements. Also, has some problems with his back. He has been told that he has some arthritic changes in his neck. The patient is not being treated for rheumatoid arthritis. 2. Height 6 feet 2 inches, weight 343 pounds, BMI is 44. 3. Vital Signs: Blood pressure 130/82, pulse 100, respiratory rate 20, room air saturation 96%. 4. Pain intensity, 9/10. 5. Fall history: The patient has not fallen in the last 3 months. 6. Blood thinner. The patient is not on a blood thinning medication. 7. Hypertension. The patient is being treated for hypertension. 8. Opioids greater than 6 weeks. The [place] [address] PAIN MANAGEMENT CONSULTATION Name: PATRICK WU Room #: REG ROSELYN Egan#: [id number] Admission: 12/19/18 ������������������ Attend Phys: Kathy Bryant MD Discharge: ������������������ Date of : 53 Report #: [id number] source the Pain Clinic. 9. Risk assessment tool, moderate for opioid use. 10. Functional assessment tool, . 11. Recreational drug use. The patient denies. 12. Tobacco: The patient has never smoked. 13. Alcohol. The patient denies use of alcoholic beverages. PHYSICAL EXAMINATION: GENERAL: The patient is a well-developed, well-nourished, somewhat obese white male, appears his stated age. He is alert and oriented x 3. His affect is appropriate. Speech is fluent. HEENT: Normocephalic, atraumatic. Extraocular eye muscles intact. Sclerae nonicteric. Mucous membranes are moist. The patient is accompanied by his daughter who is a nurse. The patient has complaints of pain in the left trapezius area. Has some pain in the area of the left levator scapulae. Palpation in this area does cause some increased pain in the shoulder area with pain that radiates up into the neck area. Flexion and extension cause increased pain and discomfort. The patient is walking with a very guarded neck. There is very little movement. Turns his shoulders to look at from one item to the next. MUSCULOSKELETAL: Upper extremity muscle strength judged to be 5-/5 for the major muscle groups in the upper extremity. The patient is not having as much pain radiating down into his arms or his shoulders as he has at previous times. The second trigger point is noted in the area of the left rhomboid. Palpation in this area does cause the pain. The patient went to grimace and withdrawal. The patient has a third trigger point, which is located on the right shoulder in the rhomboid area. All three of these areas cause a worsening and reproduction of pain, which the patient is complaining of. Lower extremity muscle strength is 5/5. The patient is walking with a slow and somewhat antalgic gait. Very little head motion is noted. ASSESSMENT: 1. History of cervical arthritic changes. 2. Myofascial pain, upper extremities. 3. History of cervical radiculopathy. 4. Osteoarthritis involving the back, neck and knees. 5. Morbid obesity. 6. Complex medical management secondary to multiple pain using opioids. RECOMMENDATIONS: We discussed treatment options with the patient. At this juncture, most of his pain appears to be located in the 3 trigger points in his upper back. Palpation of the trigger points on the left side as well as on the right side do reproduce a significant component of the pain. We discussed the risks and benefits of an injection. At this point, I think we will try the most conservative approach. We will try trigger point injections in the left shoulder area in the area of the trapezius and the rhomboid as well as the rhomboid on the right. The possible complication of the procedure, which could [facility] [address] [place] [address] PAIN MANAGEMENT CONSULTATION Name: WUPATRICK Room #: REG [facility] Hernandez.#: [id number] Admission: 12/19/18 ������������������ Attend Phys: Kathy Bryant MD Discharge: ������������������ Date of : 53 Report #: [id number] include infection, worsening pain, no improvement in pain, pneumothorax/tension pneumothorax with chest tube placement was explained and the patient elects to proceed. PROCEDURE NOTE: The patient was taken to the procedure area. He was then assisted in getting on the examination table. His back was sterilely prepped with chlorhexidine solution. It was allowed to dry. A trigger point #1 is located in the left trapezius area. A 25-gauge needle was then advanced into the area of the trigger point. The patient states this did reproduce the discomfort. Aspiration was negative for air. A total of 40 mg triamcinolone and 8 mL of 0.5% bupivacaine was injected. The second trigger point on the left side in the area of the rhomboid was identified. A 25-gauge needle was then advanced into the area of the trigger point. The patient states this did reproduce his discomfort. Aspiration was negative for air. A total of 40 mg triamcinolone and 8 mL of 0.5% bupivacaine was injected. The contralateral side on the right was identified to have a trigger point in the rhomboid. A 25-gauge needle was then advanced into this area. The patient states this did reproduce the discomfort. Aspiration for air was negative. A total of 40 mg triamcinolone and 6 mL of 0.5% bupivacaine was injected. The patient tolerated the procedure well. There were no complications. He will call us if he has any concerns. If his pain continues to be problematic and if he has pain that radiates down into his arms consistent with cervical radiculopathy, we will consider a cervical epidural steroid injection. We did review the patient's x-rays of the thoracic and lumbar area. We also reviewed of the cervical x-rays. We would like to thank you for letting us participate in his care. We hope he continues to improve. ��������������������������������������������� ���������������������������������������� By: ��������������������������������������������� [id number] Kathy Bryant MD /caryl
[2018-12-19 13:58] VITALS: BP 130/82
--- NOTE | 2018-12-19 14:25 | NUR ---
Pain Clinic Assessment: 1. History of Osteoarthritis: KNEES all joints History of Rheumatoid Arthritis: hands 2. Height: 6 ft. 2 in. 188.0 cm. Weight: lb. oz. kg. Patient's BMI: 3. Vital Signs: BP: 130/82 Pulse: 100 Resp: 20 Temp: 02 Sat: 96 ECG Mon: 4. Pain Intensity: 9 5. Fall Risk: Dizziness: Y Needs help standing or walking: N Fallen in the last 3 months: N Fall risk comments: FELL ON ICE ON MONDAY 6. Patient on Blood Thinner: None 7. History of Hypertension: Y 8. Opioid Therapy greater than 6 weeks: Y Opiate Contract Signed: 11/04/15 9. Risk Assessment Tool Provided: LOW RISK 0/3 10. Functional Assessment Tool: 11. Recreational Drug Use: Never Drug Type: Tobacco Use: Never Smoker Tobacco Type: Amount or Packs/day: How Many Years: Alcohol Use: No Frequency: Quant:
== END | disposition home or self-care (01) ==
LOC: PAIN 07:04
DX: M79.18 Myalgia, other site (principal); M17.0 Bilateral primary osteoarthritis of knee; E66.01 Morbid (severe) obesity due to excess calories; M54.12 Radiculopathy, cervical region; M54.16 Radiculopathy, lumbar region; G89.29 Other chronic pain; I10 Essential (primary) hypertension; Z79.899 Other long term (current) drug therapy